=== PATIENT | female | born 1950 | race Caucasian/White ===

== ENCOUNTER → 2022-03-21 09:27 | Outpatient (CLI) | payer MEDICARE, SELFPAY ==
[2022-03-21 10:10] LABS: Add Manual Diff / Slide Review NO; Basophils Absolute Auto 0 /uL (0-100); Basophils Percent Auto 0.4 % (0-2); Eosinophils Absolute Auto 300 /uL (0-450); Eosinophils Percent Auto 3.6 % (2-4); Hematocrit 35.3 % (36-46); Hemoglobin 11.2 g/dL (12.0-16.0); Lymphocytes Absolute Auto 2100 /uL (1100-4500); Lymphocytes Percent Auto 28.7 % (25-40); Mean Corpuscular HGB Conc 31.7 % (30-36); Mean Corpuscular Hemoglobin 26.8 PG (26-34); Mean Corpuscular Volume 84.6 fL (80-100); Monocytes Absolute Auto 600 /uL (0-900); Monocytes Percent Auto 8.9 % (3-14); Neutrophils Absolute Auto 4200 /uL (1500-7000); Neutrophils Percent Auto 58.4 % (50-75); Platelet Count 346 X10^3/uL (150-400); Red Blood Cell Count 4.17 X10^6/uL (4.0-5.2); Red Cell Distribution Width 16.7 % (11.6-14.8); White Blood Cell Count 7.2 X10^3/uL (4.5-11.0)
[2022-03-21 10:29] LABS: Alanine Aminotransferase 21 IU/L (<35); Albumin 4.5 g/dL (3.5-5.0); Albumin Globulin Ratio 1.6 (1.0-2.8); Alkaline Phosphatase 94 U/L (38-126); Aspartate Aminotransferase 23 IU/L (14-36); BUN Creatinine Ratio 18.4 (6-22); Bilirubin Total 0.6 mg/dL (0.2-1.3); Blood Urea Nitrogen 16 mg/dL (7-17); Calcium 9.8 mg/dL (8.4-10.2); Carbon Dioxide 29 mmol/L (22-32); Chloride 100 mmol/L (98-107); Cholesterol 142 mg/dL (140-199); Estimated Glomerular Filt Rate > 60 mL/min (>60); Globulin 2.8 g/dL (1.7-4.1); Glucose 112 mg/dL (80-110); HDL Cholesterol 46 mg/dL (40-60); HEMOLYSIS < 15 (0-50); LDL Cholesterol Calculated 54 mg/dL (<100); Potassium 4.7 mmol/L (3.4-5.1); Sodium 140 mmol/L (137-145); Total Protein 7.3 g/dL (6.3-8.2); Triglycerides 208 mg/dL (35-150)
[2022-03-21 10:38] LABS: Creatinine Urine Random 254.6 mg/dL
[2022-03-21 10:42] LABS: Microalbumi Creatinin Ratio Ur 7.4 ug/mg CR (<30); Microalbumin Urine Random 1.9 mg/dL (0-1.6)
[2022-03-21 11:21] LABS: Hemoglobin A1C% w Est Avg Glu 5.6 % (4.0-6.0)
== END ==
PROVIDERS: PCP Family Medicine; Referring Provider Family Medicine; Visit Provider Family Medicine
DX: E11.9 Type 2 diabetes mellitus without complications (principal); G62.9 Polyneuropathy, unspecified; I10 Essential (primary) hypertension; K50.90 Crohn's disease, unspecified, without complications; L40.50 Arthropathic psoriasis, unspecified; Z79.4 Long term (current) use of insulin
CPT/HCPCS: 36415; 80053; 80061; 82043; 82570; 83036; 84443; 85025

== ENCOUNTER → 2022-07-11 13:03 | Outpatient (CLI) | payer MEDICARE, SELFPAY | PROVIDERS: PCP Family Medicine; Visit Provider Urology | DX: N32.81 Overactive bladder (principal); N39.498 Other specified urinary incontinence; G63 Polyneuropathy in diseases classified elsewhere; Z98.890 Other specified postprocedural states; Z87.440 Personal history of urinary (tract) infections | CPT/HCPCS: 51798; 81002; 87077; 87086; 87186; 99214 ==

== ENCOUNTER 2022-07-21 08:02 | Day surgery (SDC) | payer MEDICARE, SELFPAY ==
--- NOTE | 2022-07-21 | PATH_ITS ---
[facility] Accession Number: [id number] No. of containers..04 Tissue . 01 Material submitted: . PART A: gastrointestinal site - GASTRIC PART B: duodenum - DUODENUM PART C: pylorus - PYLORUS PART D: esophagus - ESOPHAGUS . 01 Diagnosis: A. Gastric, Biopsy: Gastric mucosa with minimal chronic nonspecific inflammation. No Helicobacter pylori organisms identified on H/E slide. No intestinal metaplasia, dysplasia, or malignancy identified. . B. Duodenum, Biopsy: Duodenal mucosa with no diagnostic abnormality. Negative for active inflammation, features of sprue, dysplasia, or malignancy. . C. Pylorus, Biopsy: Gastric mucosa with focal erosion. No Helicobacter pylori organisms identified on immunohistochemical evaluation. No intestinal metaplasia, dysplasia, or malignancy identified. . D. Esophagus, Biopsy: Esophageal squamous mucosa with mild chronic inflammation. No fungal organisms identified on special stain (AB/PAS), with control staining appropriately. Small focus of unremarkable glandular mucosa. No goblet cell metaplasia, dysplasia or malignancy. See comment. [facility] 07/28/2022 1214 Local . 01 Comment: Part D: While nonspecific, the histologic features may represent reflux alterations. Clinical correlation is recommended. . 01 Electronically signed: . Augustina Gaspar MD, Pathologist NPI- [id number] . 01 Gross description: . Part A: GASTRIC: Received in formalin are 2 fragment(s) of mahan, soft tissue measuring 0.2 x 0.2 x 0.2 cm to 0.1 x 0.1 x 0.1 cm submitted entirely in 1 cassette(s) Part B: DUODENUM: Received in formalin are 2 fragment(s) of mahan, soft tissue measuring 0.2 x 0.1 x 0.1 cm to 0.1 x 0.1 x 0.1 cm submitted entirely in 1 cassette(s) Part C: PYLORUS: Received in formalin are 2 fragment(s) of mahan, soft tissue measuring 0.2 x 0.2 x 0.2 cm to 0.1 x 0.1 x 0.1 cm submitted entirely in 1 cassette(s) Part D: ESOPHAGUS: Received in formalin is 1 fragment(s) of mahan, soft tissue measuring 0.1 x 0.1 x 0.1 cm submitted entirely in 1 cassette(s) /[facility] 07/24/2022 1628 Local . 01 Microscopic: . C. An immunohistochemical stain was performed to evaluate for Helicobacter organisms and is negative. The control stain showed appropriate reactivity. . * This test was developed and its performance characteristics determined by [employer]. It has not been cleared or approved by the U.S. Food and Drug Administration. The FDA has determined that such clearance or approval is not necessary. This test is used for clinical purposes. It should not be regarded as investigational or for research. . 01 Pathologist provided ICD-10: K29.30, K29.70, K21.9, K25.9 . 01 CPT . 247755, 760239, 301772, 329342, C30323, 557877 Specimen Comment: A courtesy copy of this report has been sent to [facility] Pathology Performed at: 01 [facility] [address] [place] [address], [place], [place] [id number] MD Ion Higgins MD Phone: [phone]
[2022-07-21 08:13] VITALS: BP 147/82; PULSE 92; RESP 21; TEMP 35.5; O2SAT 96; BMI 31.0
[2022-07-21] MEDS: LACTATED RINGERS 1,000 ML 42 ML IV (08:38)
--- NOTE | 2022-07-21 09:16 | P.HP_ITS ---
History of Present Illness History of Present Illness Date Patient Seen: 07/21/22 Time Patient Seen: 09:16 Chief complaint: SDC Narrative: 71-year-old female presents today for a screening colonoscopy. Her last colonoscopy was 3 years ago and was done in [place]. She believes she did have some polyps and was recommended to have a 3 year follow-up. She was diagnosed with Crohn's disease 15-20 years ago. She is not had symptoms from her Crohn's disease lately her grandmother did have colon cancer. She is on a medication for psoriatic arthritis which helps with her Crohn's as well. When she presented with Crohn's disease back then she was having rectal bleeding and abdominal pain. The diagnosis was made by a turbine technician, Dr. Saida Rodriguez, a doctor (before she moved out to the [facility]) at hospital that was not the main Hospital but at [facility] in [place]. Her most recent turbine technician who has been following her in [place] before she moved back out here was named Jordyn Rutherford and she was with a [facility] there. She always used to get an EGD at the same time as her colonoscopy with Dr. Rutherford because she has had heartburn for years even though she takes medication. On occasion she has breakthrough heartburn and though she takes famotidine every day when she has a breakthrough she adds the Prilosec on and is supposed to take it daily but for less than a month. She also has a nausea with her symptoms and often this is problematic for her. Right now she is not on any medication but in the past she has taken Zofran as needed and that has helped a lot. [facility] Medical History (Updated 07/11/22 @ 13:50 by Blaine Carter MD) Benign essential HTN Crohn disease History of frequent urinary tract infections History of liver disease History of skin cancer Hx of hyperlipidemia Injury of back due to fall OAB (overactive bladder) Peripheral neuropathy Psoriatic arthritis Thyroid nodule Type 2 diabetes mellitus with insulin therapy Urinary incontinence Surgical History (Updated 07/11/22 @ 13:49 by Blaine Carter MD) History of back surgery History of knee replacement Family History Father Rheumatoid arthritis Cancer Mother Parkinsons disease Grandmother Cancer Brother Kidney stones Diabetes mellitus Social History marital status: number of children: 2 household members: spouse occupational status: employed Smoking Status: Never smoker alcohol intake: never substance use type: does not use caffeine: Yes Type(s) of exercise: none Meds Home Medications and Allergies Home Medications Medication Instructions Recorded Confirmed Type duloxetine 60 mg capsule,delayed 60 mg PO DAILY #90 caps 03/21/22 07/21/22 Rx release (Cymbalta) famotidine 20 mg tablet (Pepcid) 20 mg PO BID 03/21/22 07/21/22 History hyoscyamine sulfate 0.125 mg tablet 0.125 mg PO Q4H PRN rectal pain 03/21/22 07/21/22 History insulin glargine 100 unit/mL (3 25 unit SUBCUT BID 03/21/22 07/21/22 History mL) subcutaneous pen (Lantus Solostar U-100 Insulin) insulin lispro 100 unit/mL 6 - 10 unit SUBCUT TID 03/21/22 07/21/22 History subcutaneous pen losartan 25 mg tablet 25 mg PO DAILY #90 tabs 03/21/22 07/21/22 Rx rosuvastatin 10 mg tablet 10 mg PO DAILY 03/21/22 07/21/22 History gabapentin 600 mg tablet See Rx Instructions .Route 03/23/22 07/21/22 Rx .COMPLEX #90 tabs sulfasalazine 500 mg tablet See Rx Instructions .Route 03/23/22 07/21/22 Rx .COMPLEX #120 tabs cyclobenzaprine 10 mg tablet 10 mg PO BEDTIME #90 tabs 03/27/22 07/21/22 Rx flash glucose sensor (FreeStyle #6 ea 04/04/22 Rx Davi 14 Day Sensor kit) sodium,potassium,mag sulfates 17.5 See Rx Instructions PO .COMPLEX 05/15/22 07/21/22 Rx gram-3.13 gram-1.6 gram oral soln #354 mL (Suprep Bowel Prep Kit) cholecalciferol (vitamin D3) 25 25 mcg PO DAILY 07/10/22 07/21/22 History mcg (1,000 unit) capsule folic acid 1 mg tablet 1 mg PO DAILY 07/10/22 07/21/22 History magnesium oxide 500 mg tablet 500 mg PO BID 07/10/22 07/21/22 History metformin 1,000 mg PO BID 07/10/22 07/21/22 History valacyclovir 500 mg tablet 500 mg PO BID 07/10/22 07/21/22 History famotidine 20 mg tablet (Pepcid) 20 mg PO BID 07/11/22 07/21/22 History risankizumab-rzaa [Skyrizi] SUBCUT [id number] 07/11/22 07/11/22 History solifenacin 10 mg tablet (Vesicare) 10 mg PO DAILY #90 tabs 07/14/22 07/21/22 Rx Allergies Allergy/AdvReac Type Severity Reaction Status Date / Time adhesive tape Allergy Unknown Verified 07/21/22 08:25 codeine Allergy Unknown Verified 07/21/22 08:25 mesalamine [From Asacol] AdvReac Unknown Verified 07/21/22 08:25 Exam Vital Signs (past 8 hours): - 07/21/22 08:13 Temperature 96 F L Pulse Rate 92 H Respiratory Rate 21 Blood Pressure 147/82 H Pulse Oximetry 96 Oxygen Delivery Method Room Air Oxygen Delivery Method Room Air Const General: cooperative, healthy appearing and comfortable Nutritional Appearance: obese Orientation: alert, awake and oriented x3 HENMT Head: normal to inspection Resp Effort & Inspection: normal respiratory effort and able to speak in complete sentences GI Palpation: soft and No tender Assessment & Plan Assessment & Plan narrative: Presents today for screening colonoscopy I discussed the risks benefits and alternatives including but not limited to perforation of the colon and an incomplete exam she fully understands these risks and would like to proceed. Also discussed the risks of EGD including perforation. I will write her prescription for some as needed Zofran and make a referral to Gastroenterology because she will need to be followed by a turbine technician here. I will ask my office staff to requisition the records that the turbine technician need. I discussed [facility] with her and she does not feel that she needs to be seen urgently and would like to be seen in [place].
[2022-07-21 11:03] VITALS: BP 112/52; PULSE 67; RESP 17; TEMP 36.3; O2SAT 89
[2022-07-21 11:08] VITALS: BP 128/81; PULSE 70; RESP 18; O2SAT 98
[2022-07-21 11:12] VITALS: BP 120/62; PULSE 67; RESP 15; O2SAT 96
--- NOTE | 2022-07-21 11:12 | SUR.PHASEI ---
Irrigation and small amounts of BM in bed. patient cleanedd with wipes, new linens applied.
[2022-07-21 11:17] VITALS: BP 115/61; PULSE 62; RESP 12; TEMP 36.4; O2SAT 98
--- NOTE | 2022-07-21 12:55 | P.OP.EGD&C_ITS ---
Operative Date/Time/Diagnoses Date of procedure: 07/21/22 Pre-op diagnosis: History of Crohn's, history of GERD, history of polyps Post-op diagnosis: other (Same as above but, also poor prep) Procedure & Clinicians Study performed: 1. EGD and biopsy 2. Colonoscopy Same procedure as scheduled: Yes Indications: See preop diagnosis Surgeon: Veronika Shaw Procedure Notes Procedure in detail: Patient was taken to the endoscopy suite and placed supine with her head up right. Bite block was placed. A time-out was performed. Conscious sedation with the help of anesthesia provider was induced and maintained throughout the case. The EGD scope was placed into the mouth and easily advanced into the esophagus. It was then advanced into stomach past pylorus and into the duodenum. Photographs were obtained. The duodenum was biopsied. The pylorus was biopsied and finally the gastric mucosa was biopsied. There were a few gastric polyps and erythema in the gastric and pyloric mucosa. The scope was retracted into the esophagus and some distal esophageal biopsies were obtained but the GE junction appeared normal and no Vega's esophagus was appreciated. Next the patient was positioned left lateral decubitus for colonoscopy. A digital rectal exam was performed. There were no masses or strictures. The colonoscope was introduced into the anal canal and advanced through to the cecum. The prep was not very good multiple photographs were obtained. Efforts were made at irrigation in order to obtain an adequate exam, but the amount of material and thickness of it continually was clogging the suction port, causing a delay and difficulty in the procedure. I was able to intubate the terminal ileum however with a cough the scope was pushed out and I was not able to re- enter it. No photograph or biopsy was obtained of the terminal ileum. Finally the scope was withdrawn for the course of 40 minutes. The majority of the time was spent in suctioned and irrigating and attempting to reintubate the terminal ileum. No obvious polyps were seen there was certainly no large lesions. I however would not call this a Noel adequate exam and would recommend a follow- up in 1 year. At the time of follow-up I would recommend a 2 day prep. Findings: gastritis and polyp Specimen(s): other (1. Gastric 2. Duodenum 3. Pylorus 4. Distal esophagus) Complications: none Post-procedure Recommendations: Colonscopy in 1 year Plan for aftercare: Will make Gastroenterology referral for Crohn's disease. Disposition: PACU
== END 2022-07-21 11:29 | disposition home or self-care (01) ==
PROVIDERS: PCP Family Medicine; Referring Provider Surgery; Visit Provider Surgery
PROC: 0DJD8ZZ Inspection of Lower Intestinal Tract, Via Natural or Artificial Opening Endoscopic (ICD-10-PCS; CPT 45378; principal; 2022-07-21 08:45)
PROC: 0DJ08ZZ Inspection of Upper Intestinal Tract, Via Natural or Artificial Opening Endoscopic (ICD-10-PCS; CPT 43235; 2022-07-21 08:45)
DX: Z12.11 Encounter for screening for malignant neoplasm of colon (principal); Z86.010 Personal history of colon polyps; E11.9 Type 2 diabetes mellitus without complications; Z79.4 Long term (current) use of insulin; I10 Essential (primary) hypertension; K29.70 Gastritis, unspecified, without bleeding; K31.7 Polyp of stomach and duodenum; K29.50 Unspecified chronic gastritis without bleeding
CPT/HCPCS: 43239; G0105; J2704

== ENCOUNTER → 2022-09-28 14:14 | Outpatient (CLI) | payer MEDICARE, SELFPAY ==
[2022-09-29 09:17] LABS: x Labcorp Estim. Avg Glu (eAG) 105 mg/dL (.); x Labcorp Hemoglobin A1c 5.3 % (4.8-5.6)
== END ==
PROVIDERS: PCP Family Medicine; Referring Provider Family Medicine; Visit Provider Family Medicine
DX: E11.9 Type 2 diabetes mellitus without complications (principal)
CPT/HCPCS: 36415; 83036

== ENCOUNTER → 2022-10-09 14:15 | Outpatient (CLI) | payer MEDICARE, SELFPAY ==
--- NOTE | 2022-10-09 14:18 | DI.MG.S_ITS ---
BILATERAL DIGITAL SCREENING MAMMOGRAM 3D/2D WITH CAD WITH AUGMENTATION: 10/09/2022 CLINICAL: Routine screening. No prior exams were available for comparison. Both breasts are heterogeneously dense, which may obscure small masses (category c / 51-75% glandular tissue). Current study was also evaluated with a Computer Aided Detection (CAD) system. Bilateral breast implants are intact. No significant masses, calcifications, or other findings are seen in either breast. IMPRESSION: NEGATIVE There is no mammographic evidence of malignancy. A 1 year screening mammogram is recommended. Based on the Tyrer Cuzick model (a risk assessment model) the patient's lifetime risk is 9.0% and her 10 year risk is 6.2%. According to the ACR, ACS, and NCCN guidelines, an annual breast MRI exam along with mammogram is recommended if the patient's lifetime risk is 20% or greater. This exam was interpreted at Station ID: [id number]. NOTE: For mammograms, a report in lay terms will be sent to the patient. Approximately 15% of breast malignancies will not be visualized mammographically. In the management of a palpable breast mass, a negative mammogram must not discourage biopsy of a clinically suspicious lesion. Electronically Signed By: Bobbi sanchez/amador:10/09/2022 15:01:24 letter sent: Normal Exam ACR BI-RADS Category 1: Negative [id number]
== END ==
PROVIDERS: PCP Family Medicine; Referring Provider Family Medicine; Visit Provider Family Medicine
DX: Z12.31 Encounter for screening mammogram for malignant neoplasm of breast (principal)
CPT/HCPCS: 77063; 77067

== ENCOUNTER → 2022-11-24 13:43 | Outpatient (CLI) | payer MEDICARE, SELFPAY | PROVIDERS: PCP Family Medicine; Referring Provider Podiatrist; Visit Provider Podiatrist | DX: Z01.818 Encounter for other preprocedural examination (principal) | CPT/HCPCS: 93005; 93010 ==

== ENCOUNTER 2022-12-26 03:42 | Emergency (ER) | payer MEDICARE, SELFPAY ==
[2022-12-26] VITALS (8 sets, daily range): BP systolic 134–160; BP diastolic 60–73; PULSE 20–96; RESP 17–20; TEMP 36.4; O2SAT 93–97; BMI 30.2
--- NOTE | 2022-12-26 03:49 | ED_ITS ---
HPI - General Adult General Chief complaint: Upper Respiratory Symptoms Stated complaint: coughing Time Seen by Provider: 12/26/22 03:45 History of Present Illness HPI narrative: 72-year-old will with a history of psoriatic arthritis, Crohn's disease on methotrexate and scab dizzy, hypertension, diabetes, peripheral neuropathy and depression with complaints of persistent cough. Her symptoms began on December 16 with simple upper respiratory symptoms. Her had similar complaints and his symptoms resolved without difficulty. Her however have progressed with cough that is now becoming more and more productive and so intrusive that she has not been able to sleep for the last 3 nights. She complains of chest pain secondary to the cough only, no palpitations she notes that she is feeling short of breath. She has not had any abdominal pain diarrhea, urinary symptoms. Does note intermittent headaches Related Data Home Medications Medication Instructions Recorded Confirmed hyoscyamine sulfate 0.125 mg tablet 0.125 mg PO Q4H PRN rectal pain 03/21/22 09/26/22 insulin glargine 100 unit/mL (3 25 unit SUBCUT BID 03/21/22 09/26/22 mL) subcutaneous pen (Lantus Solostar U-100 Insulin) insulin lispro 100 unit/mL 6 - 10 unit SUBCUT TID 03/21/22 09/26/22 subcutaneous pen rosuvastatin 10 mg tablet 10 mg PO DAILY 03/21/22 09/26/22 folic acid 1 mg tablet 1 mg PO DAILY 07/10/22 09/26/22 magnesium oxide 500 mg tablet 500 mg PO BID 07/10/22 09/26/22 metformin 1,000 mg PO BID 07/10/22 09/26/22 valacyclovir 500 mg tablet 500 mg PO BID 07/10/22 09/26/22 famotidine 20 mg tablet (Pepcid) 20 mg PO BID 07/11/22 09/26/22 methotrexate sodium 25 mg/mL 25 mg IM QWEEK 09/26/22 09/26/22 injection solution risankizumab-rzaa 150 mg/mL 150 mg SUBCUT [id number] 09/26/22 09/26/22 subcutaneous pen injector (Skyrizi) Previous Rx's Medication Instructions Recorded duloxetine 60 mg capsule,delayed 60 mg PO DAILY #90 caps 03/21/22 release (Cymbalta) losartan 25 mg tablet 25 mg PO DAILY #90 tabs 03/21/22 gabapentin 600 mg tablet See Rx Instructions .Route 03/23/22 .COMPLEX #90 tabs cyclobenzaprine 10 mg tablet 10 mg PO BEDTIME #90 tabs 03/27/22 flash glucose sensor (FreeStyle #6 ea 04/04/22 Davi 14 Day Sensor kit) sodium,potassium,mag sulfates 17.5 See Rx Instructions PO .COMPLEX 05/15/22 gram-3.13 gram-1.6 gram oral soln #354 mL (Suprep Bowel Prep Kit) solifenacin 10 mg tablet (Vesicare) 10 mg PO DAILY #90 tabs 07/14/22 meclizine 25 mg tablet (Dramamine 25 mg PO TID PRN vertigo #30 tabs 09/26/22 (meclizine)) ondansetron HCl 4 mg tablet 4 mg PO Q6-8H PRN nausea and 09/26/22 vomiting #30 tabs nirmatrelvir 300 mg (150 mg See Rx Instructions PO .COMPLEX 12/17/22 x2)-ritonavir 100 mg tablet,dose #30 ea pack (Paxlovid) benzonatate 100 mg capsule 100 mg PO BID-TID PRN cough #14 12/26/22 caps oxycodone-acetaminophen 5 mg-325 1 tab PO Q6H PRN pain or cough #14 12/26/22 mg tablet tabs Allergies Allergy/AdvReac Type Severity Reaction Status Date / Time adhesive tape Allergy Unknown Verified 09/26/22 13:55 codeine Allergy Unknown Verified 09/26/22 13:55 mesalamine [From Asacol] AdvReac Unknown Verified 09/26/22 13:55 Review of Systems Review of Systems Narrative: Pertinent positive and negative findings as per HPI Patient History Medical History History of squamous cell carcinoma History of basal cell cancer Foot pain (~2013) Measles (~1958) History of cold sores (~1964) Chicken pox (~1957) Anemia Vertigo (~2007) Human papilloma virus (~2009) History of urinary incontinence (~2013) Fatty liver (~2004) Hemorrhoid GI bleeding (~2004) Colon polyps Skin cancer History of liver disease History of skin cancer Hx of hyperlipidemia OAB (overactive bladder) Thyroid nodule (~2017) Peripheral neuropathy (~2004) Crohn disease (~2004) Psoriatic arthritis (~2003) Benign essential HTN Type 2 diabetes mellitus with insulin therapy (~2012) Surgical History Anesthesia History of bunionectomy Lumbar stenosis History of tonsillectomy and adenoidectomy (~195) History of knee replacement History of back surgery (~2008) Family History Father Rheumatoid arthritis Cancer Mother Parkinsons disease Skin cancer Grandmother Cancer Diabetes mellitus Brother Kidney stones Diabetes mellitus Skin cancer Grandfather Cancer Grandmother Mental health problem Grandfather Asthma Family/Other History of IBS Social History marital status: number of children: 2 household members: spouse occupational status: employed Smoking Status: Never smoker alcohol intake: never substance use type: does not use caffeine: Yes Type(s) of exercise: none Smoking Status: Never smoker alcohol intake frequency: holidays/special occasions only Substance Use Type: does not use Exam Initial Vital Signs Initial Vital Signs: General: Presents with the cough but in no acute distress. Able to give a complete and coherent history, speaking in full sentences Well-nourished well- developed HEENT: Moist mucous membranes, normal sclera with reactive pupils, Neck: No JVD, supple Respiratory: Lungs with minor wheezing upper lung beebe, rhonchi bilaterally in lower lung beebe Cardiac: Regular rate and rhythm no murmurs no bruits Abdomen: Soft, nontender, good bowel tones, no flank pain Skin: Warm and dry, no rashes Neurologic: Grossly neurologically intact with no obvious asymmetries or abnormalities Extremities: No trauma, well perfused Psych: Cooperative, appropriate insight and affect Medical Decision Making MDM Narrative Medical decision making narrative: CC: Upper respiratory infection with worsening cough becoming more productive Complicating co-morbidities: Psoriatic arthritis, Crohn's disease diabetes Data collected from: patient, Medical records reviewed: Primary care notes from September are reviewed, rheumatology notes from November are reviewed Differential considered: Bacterial pneumonia, secondary viral infection, congestive heart failure Exam documented above, pertinent findings include: Coarse rhonchi through bases of the lungs by laterally with scattered wheeze. She is able to speak in full sentences but does have fairly intrusive in dramatic cough. Lab Test results independently reviewed as above. Pertinent findings: CBC shows a white count of 10.5 without left shift chronic stable anemia mild thrombocytosis with platelets of 455 Chemistries are unremarkable with normal renal function Troponin is undetectable ProBNP is not elevated Procalcitonin is not elevated Independently reviewed EKG sinus rhythm at a rate of 83, normal intervals normal axis, no acute ischemic changes Imaging studies independently reviewed: Chest x-ray shows no acute infiltrates but consistent with a bronchiolitis viral pneumonia type picture Treatments: 1 L of fluid, DuoNeb, Tessalon Perle, IV Solu-Medrol, single Percocet Re-evaluations: Patient continues to have fairly dramatic but nonproductive cough. The DuoNeb did not seem to be all that effective. Minimal help with the Tessalon. The Percocet was more helpful in slightly suppressing the cough Discussion: 72-year-old woman with persistent cough with viral pneumonia without evidence of bacterial superinfection, sepsis or indications for antibiotics. There is no indication of congestive heart failure, acute coronary syndrome or pneumothorax. She and her were planning a 2 week trip to [facility] leaving this afternoon and I have recommended that she not try to fly for at least 3 days not only will she be too fatigued but I think it is inappropriate with the degree of cough to be in enclosed public spaces like airplanes. CURB-65 Score for Pneumonia Severity RESULT SUMMARY: 1 points Low risk group: 2.7% 30-day mortality. Consider outpatient treatment. Discharge Plan Departure Patient Disposition: Home Clinical Impression: Other viral pneumonia Cough Qualifiers: Cough type: acute Qualified Code(s): R05.1 - Acute cough Instructions: Atypical Pneumonia Activity Restrictions/Additional Instructions: Thank you for coming in today I believe that you are having persistent cough in light of your recent upper respiratory infection. With a thorough workup done today there is no evidence of bacterial secondary infection, sepsis, congestive heart failure, heart attack or heart attack like syndrome. You did not seem to have any significant change in your cough with bronchodilators (the breathing treatment) At this time, I think conservative management continues to be appropriate. I am going to give you a small prescription for Percocet which has oxycodone and Tylenol in it. This is going to help with the pain from the severe cough as well as suppress the cough. I am also going to give you a prescription for Tessalon Perles, a nonnarcotic options for cough suppression. Prescriptions were electronically transmitted to [facility] in [place] You still need lots of fluids plenty of rest. I would not recommend travel, particularly air travel, until December 29 at the earliest If you find that you are getting worse or develop any new symptoms, please feel free to return to the emergency department for further evaluation. Prescriptions: New oxycodone-acetaminophen 5-325 mg tablet 1 tab PO Q6H PRN (Reason: pain or cough) Qty: 14 0RF benzonatate 100 mg capsule 100 mg PO BID-TID PRN (Reason: cough) Qty: 14 0RF No Action gabapentin 600 mg tablet See Rx Instructions .ROUTE .COMPLEX Qty: 90 11RF Dose Instruction: TAKE 1 TABLET(600 MG) BY MOUTH THREE TIMES DAILY Rx Instructions: TAKE 1 TABLET(600 MG) BY MOUTH THREE TIMES DAILY cyclobenzaprine 10 mg tablet 10 mg PO BEDTIME Qty: 90 3RF (DME) FreeStyle Davi 14 Day Sensor Kit See Rx Instructions .Route Qty: 6 11RF Rx Instructions: As directed sodium,potassium,mag sulfates [Suprep Bowel Prep Kit] 17.5-3.13-1.6 gram recon soln See Rx Instructions PO .COMPLEX Qty: 354 0RF Rx Instructions: Take as directed by Physician Paxlovid 300 mg (150 mg x 2)-100 mg tablets,dose pack See Rx Instructions PO .COMPLEX Qty: 30 0RF Rx Instructions: take TWO 150 mg tablets of nirmatrelvir with ONE 100 mg tablet of ritonavir twice daily for 5 days PO insulin glargine [Lantus Solostar U-100 Insulin] 100 unit/mL (3 mL) insulin pen 25 unit SUBCUT BID rosuvastatin 10 mg tablet 10 mg PO DAILY hyoscyamine sulfate 0.125 mg tablet 0.125 mg PO Q4H PRN (Reason: rectal pain) duloxetine [Cymbalta] 60 mg capsule,delayed release(DR/EC) 60 mg PO DAILY Qty: 90 3RF losartan 25 mg tablet 25 mg PO DAILY Qty: 90 3RF insulin lispro 100 unit/mL insulin pen 6 - 10 unit SUBCUT TID metformin 1,000 mg PO BID methotrexate sodium 25 mg/mL solution 25 mg IM QWEEK Skyrizi 150 mg/mL pen injector 150 mg SUBCUT [id number] Patient Comments: [NO ORIGINAL SIG] ondansetron HCl 4 mg tablet 4 mg PO Q6-8H PRN (Reason: nausea and vomiting) Qty: 30 11RF meclizine [Dramamine (meclizine)] 25 mg tablet 25 mg PO TID PRN (Reason: vertigo) Qty: 30 0RF folic acid 1 mg tablet 1 mg PO DAILY magnesium oxide 500 mg tablet 500 mg PO BID valacyclovir 500 mg tablet 500 mg PO BID famotidine [Pepcid] 20 mg tablet 20 mg PO BID solifenacin [Vesicare] 10 mg tablet 10 mg PO DAILY Qty: 90 3RF Referrals: Jon Simeon DO [Primary Care Provider] - Stand Alone Forms: Patient Portal/API
--- NOTE | 2022-12-26 03:54 | DI.RAD.S_ITS ---
PROCEDURE: XR CHEST 1V INDICATIONS: Cough TECHNIQUE: One view of the chest was acquired. COMPARISON: None. FINDINGS: Surgical changes and devices: ACDF. Lungs and pleura: Lungs are clear. No pleural effusions or pneumothorax. Peribronchial cuffing. Mediastinum: Mediastinal contours appear normal. Heart size is normal. Bones and chest wall: No suspicious bony lesions. Overlying soft tissues appear unremarkable. IMPRESSION: Peribronchial cuffing, typically indicating infectious or inflammatory bronchitis. Dictated by: Frankie Dean M.D. on 12/26/2022 at 8:07 Approved by: Frankie Dean M.D. on 12/26/2022 at 8:11
[2022-12-26] MEDS: BENZONATATE 100 MG CAPSULE PO (04:04)
[2022-12-26] MEDS: ALBUTEROL/IPRATROPIUM 3 ML AMPUL INH (04:10)
[2022-12-26] MEDS: SODIUM CHLORIDE 0.9% 1,000 ML 1000 ML IV (04:27)
[2022-12-26 04:55] LABS: Alanine Aminotransferase 32 IU/L (<35); Albumin 4.3 g/dL (3.5-5.0); Albumin Globulin Ratio 1.3 (1.0-2.8); Alkaline Phosphatase 84 U/L (38-126); Aspartate Aminotransferase 40 IU/L (14-36); BUN Creatinine Ratio 21.3 (6-22); Bilirubin Total 0.5 mg/dL (0.2-1.3); Blood Urea Nitrogen 16 mg/dL (7-17); Carbon Dioxide 28 mmol/L (22-32); Chloride 101 mmol/L (98-107); Estimated Glomerular Filt Rate > 60 mL/min (>60); Globulin 3.3 g/dL (1.7-4.1); Glucose 106 mg/dL (80-110); Magnesium 2.2 mg/dL (1.6-2.3); Potassium 4.5 mmol/L (3.4-5.1); Sodium 138 mmol/L (137-145); Total Protein 7.6 g/dL (6.3-8.2)
[2022-12-26 04:57] LABS: Lactate (Lactic Acid) 1.7 mmol/L (0.7-2.1)
[2022-12-26 05:07] LABS: NT-proBNP (BNP-Adult 18+) 23 pg/mL (<125); Troponin I < 0.012 ng/mL (0.01-0.034)
[2022-12-26 05:11] LABS: Add Manual Diff / Slide Review NO; Basophils Absolute Auto 100 /uL (0-100); Basophils Percent Auto 0.8 % (0-2); Eosinophils Absolute Auto 400 /uL (0-450); Eosinophils Percent Auto 3.6 % (2-4); Hematocrit 34.2 % (36-46); Hemoglobin 11.1 g/dL (12.0-16.0); Lymphocytes Absolute Auto 3600 /uL (1100-4500); Mean Corpuscular HGB Conc 32.5 % (30-36); Mean Corpuscular Hemoglobin 27.7 PG (26-34); Mean Corpuscular Volume 85.1 fL (80-100); Monocytes Absolute Auto 1300 /uL (0-900); Monocytes Percent Auto 12.7 % (3-14); Neutrophils Absolute Auto 5100 /uL (1500-7000); Neutrophils Percent Auto 48.9 % (50-75); Platelet Count 455 X10^3/uL (150-400); Procalcitonin 0.06 ng/mL (<0.5); Red Blood Cell Count 4.02 X10^6/uL (4.0-5.2); Red Cell Distribution Width 17.5 % (11.6-14.8); White Blood Cell Count 10.5 X10^3/uL (4.5-11.0)
[2022-12-26 05:26] LABS: HEMOLYSIS 67 (0-50)
[2022-12-26] MEDS: methylPREDNISolone 125 MG/2 ML VIAL IV (05:48)
[2022-12-26] MEDS: OXYCODONE/ACETAMINOPHEN 5/325 TABLET 1 TAB PO (05:48)
[2022-12-26 05:59] LABS: D Dimer 1053 ng/ml (<500)
[2022-12-26 07:02] LABS: Appearance Urine UA CLEAR; Bilirubin Urine UA NEGATIVE (NEGATIVE); Color Urine UA YELLOW; Glucose Urine UA NEGATIVE (Negative); Ketones Urine UA NEGATIVE (NEGATIVE); Leukocyte Esterase Urine UA 1+ (NEGATIVE); Nitrite Urine UA POSITIVE (Negative); Occult Blood Urine UA NEGATIVE (Negative); Protein Urine UA NEGATIVE (Negative); Specific Gravity Urine UA <=1.005 (1.000-1.035); Urobilinogen Urine UA 0.2 E.U./dL (0.2)
[2022-12-26 07:06] LABS: pH Urine UA 5.5 (4.5-8.0)
[2022-12-26 07:12] LABS: Bacteria Urine Many (>30); Culture Indicated Urine Specimen Cultured; RBC Urine None Seen (0-5/HPF); Squamous Epithelial Cell Urine 1-5 /HPF (0-5/HPF); WBC Urine 1-5/HPF (0-5/HPF)
== END 2022-12-26 06:09 | disposition home or self-care (01) ==
PROVIDERS: Emergency Provider Emergency Medicine; PCP Family Medicine
DX: J18.9 Pneumonia, unspecified organism (principal); R05.1 Acute cough; Z79.899 Other long term (current) drug therapy
CPT/HCPCS: 36415; 71045; 80053; 81001; 83605; 83735; 83880; 84145; 84484; 85025; 85379; 87040; 87070; 87077; 87086; 87186; 87205; 93005; 93010; 94640; 96361; 96374; 99284; J2930

== ENCOUNTER 2022-12-30 19:23 | Inpatient (IN) | payer MEDICARE, SELFPAY ==
[2022-12-30] VITALS (26 sets, daily range): BP systolic 121–167; BP diastolic 54–76; PULSE 92–119; RESP 19–49; TEMP 37.3–39.8; O2SAT 85–98; BMI 35.3
--- NOTE | 2022-12-30 19:28 | DI.RAD.S_ITS ---
PROCEDURE: XR CHEST 1V INDICATIONS: SOB, fever, hypoxia; + covid early in month. TECHNIQUE: One view of the chest was acquired. COMPARISON: [facility], CR, XR CHEST 1V, 12/26/2022, 3:53. FINDINGS: Surgical changes and devices: Cervical fixation plate. Lungs and pleura: Mild increased pulmonary vascularity. Mediastinum: Mediastinal contours appear normal. Heart size is enlarged. Bones and chest wall: No suspicious bony lesions. Overlying soft tissues appear unremarkable. IMPRESSION: Mild increased pulmonary vascularity suggestive of edema. Dictated by: Alison Blanchard M.D. on 12/30/2022 at 19:46 Approved by: Alison Blanchard M.D. on 12/30/2022 at 19:47
--- NOTE | 2022-12-30 19:39 | ED_ITS ---
HPI - Sepsis General Chief Complaint: Shortness of Breath/Dyspnea Mode of arrival: EMS Source: EMS Limitations: altered mental status Evaluation Sepsis Screen: Possible Severe Sepsis Risk Sepsis Infection Criteria Present: Suspected New Infection Narrative: 72-year-old female with history of psoriatic arthritis, Crohn's disease on methotrexate, hypertension, diabetes, peripheral neuropathy and depression was seen here on 12/26/2022 for cough. Patient was noted to have a recent COVID infection tested negative reportedly earlier in the week. Patient has had fevers, cough, shortness of breath, reportedly became confused fairly abruptly earlier today. She is found to be hypoxic with EMS is 86% room air here. Patient can tell me her name, she can tell me where she is. Denies pain currently. No complaint of headache, no chest pain but shortness of breath has a barky harsh cough, no reported nausea or vomiting, no reports of diarrhea or constipation, no urinary symptoms currently. Patient was discharged home with Tessalon Perles and Percocet 4 days ago. Allergies to adhesive tape, codeine and mesalamine. No tobacco, occasional alcohol, no illicit. Primary care is Dr. Webb. Patient lives with her who called for EMS today. Review of Systems Review of Systems ROS Unobtainable: Unobtainable due to mental status/LOC Patient History Medical History History of squamous cell carcinoma History of basal cell cancer Foot pain (~2013) Measles (~1958) History of cold sores (~1964) Chicken pox (~1957) Anemia Vertigo (~2007) Human papilloma virus (~2009) History of urinary incontinence (~2013) Fatty liver (~2004) Hemorrhoid GI bleeding (~2004) Colon polyps Skin cancer History of liver disease History of skin cancer Hx of hyperlipidemia OAB (overactive bladder) Thyroid nodule (~2017) Peripheral neuropathy (~2004) Crohn disease (~2004) Psoriatic arthritis (~2003) Benign essential HTN Type 2 diabetes mellitus with insulin therapy (~2012) Surgical History Anesthesia History of bunionectomy Lumbar stenosis History of tonsillectomy and adenoidectomy (~1954) History of knee replacement History of back surgery (~2008) Family History Father Rheumatoid arthritis Cancer Mother Parkinsons disease Skin cancer Grandmother Cancer Diabetes mellitus Brother Kidney stones Diabetes mellitus Skin cancer Grandfather Cancer Grandmother Mental health problem Grandfather Asthma Family/Other History of IBS Social History marital status: number of children: 2 household members: spouse occupational status: employed Smoking Status: Never smoker alcohol intake: current substance use type: does not use caffeine: Yes Type(s) of exercise: none Smoking Status: Never smoker alcohol intake frequency: holidays/special occasions only Substance Use Type: does not use Exam Narrative Exam Narrative: GEN: well nourished, female, alert and oriented to self and location, answer some questions appropriately, patient appears to be in moderate to severe distress. Patient feels warm to the touch. HEENT: Atraumatic, pupils are equal round reactive to light, extraocular movements are intact, nares are clear, there is no conjunctival pallor. Throat is clear without any exudates, erythema, tonsillar enlargement or uvular deviation, no nuchal rigidity or meningeal signs. HEART: Tachycardic but tegular rate and rhythm without murmur, clicks, rubs. Pulses are equal in upper and lower extremities, no mottling of extremities. LUNGS:Lungs patient decreased in the right base, has crackles and rales with rhonchi bilaterally, no wheezes appreciated, chest moves symmetrically. Positive for tachypnea. No accessory muscle use. No tripoding. Patient has a harsh cough, no stridor no muffled voice ABD:bowel sounds normal, soft, non-tender, no guarding, rebound, rigidity, no masses noted, no hepatosplenomegaly :No CVA tenderness MSCL: Non-tender, no muscle atrophy, muscles strength 5/5 upper and lower extremities, full range of motion upper and lower extremities. NEURO:CN 2-12 intact, sensation normal. No facial droop. No lateralizing weakness. SKIN: Rash, erythema or other skin changes Initial Vital Signs Initial Vital Signs: Vital Signs Temperature 103.6 F H 12/30/22 19:21 Pulse Rate 111 H 12/30/22 19:21 Respiratory Rate 34 H 12/30/22 19:21 Blood Pressure 167/76 H 10/21/23 19:21 Pulse Oximetry 85 L 12/30/22 19:21 Oxygen Delivery Method Room Air 12/30/22 19:21 Scores GCS Raffy coma scale eye opening: Spontaneous Raffy coma scale verbal response: Confused [place] coma scale motor response: Obey commands Raffy coma scale total score: 14 Course Orders Ordered: ED Orders 12/30/22 19:28 XR chest 1V Stat Arterial Blood Gas Stat EKG-12 Lead Stat 12/30/22 19:40 Respiratory Panel (Film Array) Stat 12/30/22 19:50 Complete Blood Count AUTO DIFF Stat Comprehensive Metabolic Panel Stat D Dimer Stat Lactate (Lactic Acid) Stat NT-proBNP (BNP-Adult 18+) Stat PTT Partial Thromboplastin Kerwin Stat Procalcitonin Stat Prothrombin Time INR Stat Troponin & CK Cardiac Panel Stat 12/30/22 20:12 Urinalysis and Microscopic Stat Urine Culture Stat 12/30/22 20:22 Blood Culture Stat 12/30/22 20:52 CT angio chest PE protocol Stat CT head/brain wo con Stat 12/30/22 21:47 Urine Drug Screen, Rapid Stat Acetaminophen (Acetaminophen 325 Mg Tablet) 650 mg PO Q6H PRN PRN Reason: Pain, Mild (1-3) Hydrocodone Bitart/Acetaminophen (Hydrocodone/Acet 5/325 Tablet) 1 tab PO Q4H PRN PRN Reason: Pain, Moderate (4-6) Albuterol (Albuterol 2.5 Mg/3 Ml Neb (Adult)) 2.5 mg INH RTTID PRN PRN Reason: Bronchospasm Last Admin: 12/31/22 03:00 Dose: 2.5 mg Documented By: ALYSIA Albuterol/Ipratropium (Albuterol/Ipratropium 3 Ml Ampul) 3 ml INH [id number] PATO Atorvastatin Calcium (Atorvastatin 20 Mg Tablet) 20 mg PO BEDTIME PATO Benzonatate (Benzonatate 100 Mg Capsule) 100 mg PO TID PRN PRN Reason: Cough Calcium Carbonate (Calcium Carbonate 500 Mg Tab) 1,000 mg PO Q4HR PRN PRN Reason: Dyspepsia Cyclobenzaprine HCl (Cyclobenzaprine 10 Mg Tablet) 10 mg PO BEDTIME [facility] Dexamethasone (Dexamethasone 10 Mg/Ml Vial) 6 mg IV DAILY [facility] Doxycycline Hyclate (Doxycycline Hyclate 100 Mg Tablet) 100 mg PO BID PATO Duloxetine HCl (Duloxetine 30 Mg Capsule) 60 mg PO DAILY [facility] Enoxaparin Sodium (Enoxaparin 40 Mg/0.4 Ml Syringe) 40 mg SUBCUT DAILY [facility] Famotidine (Famotidine 20 Mg Tablet) 20 mg PO BID [facility] Folic Acid (Folic Acid 1 Mg Tablet) 1 mg PO DAILY [facility] Gabapentin (Gabapentin 600 Mg Tablet) 600 mg PO 1200 [facility] Gabapentin (Gabapentin 600 Mg Tablet) 1,800 mg PO 2359 [facility] Sodium Chloride (Normal Saline 0.9%) 1,000 mls @ 100 mls/hr IV CONT [facility] Last Admin: 12/31/22 00:51 Dose: 100 mls/hr Documented By: Ceftriaxone Sodium 1,000 mg/ (Sodium Chloride) 100 mls @ 200 mls/hr IV Q24H [facility] Dextrose (D10w) 100 mls @ 1,200 mls/hr IV PRN PRN PRN Reason: Hypoglycemia Ibuprofen (Ibuprofen 600 Mg Tablet) 600 mg PO Q6H [facility] Last Admin: 12/31/22 01:03 Dose: Not Given Documented By: Insulin Glargine (Insulin Glargine 100 Unit/Ml 3ml Pen) 18 unit SUBCUT BID [facility] Insulin Human Lispro (Insulin Lispro 100 Unit/Ml 3ml Vial) 0 unit SUBCUT [facility]; Protocol Ketorolac Tromethamine (Ketorolac 30 Mg/Ml Vial) 30 mg IV Q6H PRN PRN Reason: Pain, Moderate (4-6) Stop: 01/05/23 00:49 Morphine Sulfate (Morphine 2 Mg/Ml Inj) 2 mg IV Q4HR PRN PRN Reason: Pain, Moderate (4-6) Last Admin: 12/31/22 01:23 Dose: 2 mg Documented By: Naloxone HCl (Naloxone 0.4 Mg/Ml Vial) 0.2 mg IV Q2MIN PRN PRN Reason: Opiate Reversal Non-Formulary Medication (Magnesium Oxide) 500 mg PO BID [facility] Ondansetron HCl (Ondansetron 4 Mg/2 Ml Inj) 4 mg IV Q8HR PRN PRN Reason: Nausea And Vomiting Oxybutynin Chloride (Oxybutynin 5 Mg Er Tab) 10 mg PO DAILY [facility] Pantoprazole Sodium (Pantoprazole Dr 20 Mg Tablet) 20 mg PO 0600 [facility] Promethazine HCl (Promethazine 12.5 Mg Supp) 12.5 mg AR Q6HR PRN PRN Reason: Nausea And Vomiting Sennosides (Sennosides 8.6 Mg Tablet) 17.2 mg PO BEDTIME PATO Valacyclovir HCl (Valacyclovir 500 Mg Tablet) 500 mg PO BID PATO Discontinued Medications Acetaminophen (Acetaminophen 325 Mg Tablet) 975 mg PO NOW ONE Stop: 12/30/22 19:40 Acetaminophen (Acetaminophen 650 Mg Supp) 650 mg AR NOW ONE Stop: 12/30/22 19:42 Last Admin: 12/30/22 20:07 Dose: 650 mg Documented By: NEHA Albuterol/Ipratropium (Albuterol/Ipratropium 3 Ml Ampul) 3 ml INH NOW ONE Stop: 12/30/22 19:31 Last Admin: 12/30/22 19:53 Dose: 3 ml Documented By: ALYSIA Gabapentin (Gabapentin 600 Mg Tablet) 0 mg PO .COMPLEX PATO Ceftriaxone Sodium 2,000 mg/ (Sodium Chloride) 100 mls @ 200 mls/hr IV NOW ONE Stop: 12/30/22 19:29 Last Infusion: 12/30/22 21:06 Dose: Infused Documented By: Admin: 12/30/22 20:26 Dose: 200 mls/hr Documented By: NEHA Sodium Chloride (Normal Saline 0.9%) 1,000 mls @ 1,000 mls/hr IV BOLUS ONE Stop: 12/30/22 20:27 Sodium Chloride (Normal Saline 0.9%) 1,779 mls @ 593 mls/hr 30 ml/kg infuse over 3 hr (1779 ml) IV NOW ONE Stop: 12/30/22 22:41 Last Infusion: 12/30/22 23:10 Dose: Infused Documented By: Admin: 12/30/22 19:52 Dose: 593 mls/hr Documented By: NEHA Ketorolac Tromethamine (Ketorolac 30 Mg/Ml Vial) 15 mg IV NOW ONE Stop: 12/30/22 20:53 Last Admin: 12/30/22 21:13 Dose: 15 mg Documented By: NEHA Methylprednisolone (Methylprednisolone 125 Mg/2 Ml Vial) 125 mg IV NOW ONE Stop: 12/30/22 19:31 Last Admin: 12/30/22 20:07 Dose: 125 mg Documented By: NEHA Non-Formulary Medication (Rosuvastatin) 10 mg PO BEDTIME PATO Non-Formulary Medication (Solifenacin [Vesicare]) 10 mg PO DAILY PATO Vital Signs Vital signs: Vital Signs - 8 hr 12/30/22 19:21 12/30/22 19:25 12/30/22 19:30 Temperature 103.6 F H Pulse Rate 111 H 117 H Respiratory Rate 34 H 34 H Blood Pressure 167/76 H 167/76 H Pulse Oximetry 85 L 93 Oxygen Delivery Method Room Air Nasal Cannula Oxygen Flow Rate 5 12/30/22 19:30 12/30/22 19:45 12/30/22 19:54 Temperature Pulse Rate 112 H 111 H 114 H Respiratory Rate 28 H 30 H 22 Blood Pressure Pulse Oximetry 94 96 98 Oxygen Delivery Method Nasal Cannula Oxygen Flow Rate 4 12/30/22 20:00 12/30/22 20:07 12/30/22 20:12 Temperature 103.6 F H Pulse Rate 119 H Respiratory Rate 49 H Blood Pressure 151/67 H Pulse Oximetry 93 Oxygen Delivery Method Oxygen Flow Rate 12/30/22 20:12 12/30/22 20:15 12/30/22 20:30 Temperature Pulse Rate 115 H 115 H Respiratory Rate 27 H 34 H Blood Pressure 149/66 H Pulse Oximetry 94 94 Oxygen Delivery Method Oxygen Flow Rate 12/30/22 20:30 12/30/22 20:41 12/30/22 20:41 Temperature 103.1 F H Pulse Rate 110 H 109 H Respiratory Rate 24 24 Blood Pressure 148/65 H Pulse Oximetry 92 93 Oxygen Delivery Method Nasal Cannula Nasal Cannula Oxygen Flow Rate 5 3.5 12/30/22 20:42 12/30/22 20:45 12/30/22 21:00 Temperature 103.1 F H Pulse Rate 108 H Respiratory Rate 23 Blood Pressure 138/65 Pulse Oximetry 92 Oxygen Delivery Method Oxygen Flow Rate 12/30/22 21:00 12/30/22 21:31 12/30/22 21:35 Temperature Pulse Rate 112 H 105 H Respiratory Rate 26 H 23 Blood Pressure 144/69 H Pulse Oximetry 93 96 Oxygen Delivery Method Oxygen Flow Rate 12/30/22 21:35 12/30/22 21:43 12/30/22 21:45 Temperature 102.5 F H 102.5 F H Pulse Rate 101 H 99 H Respiratory Rate 23 28 H Blood Pressure Pulse Oximetry 96 95 Oxygen Delivery Method Nasal Cannula Oxygen Flow Rate 3.5 12/30/22 22:00 12/30/22 22:00 12/30/22 22:15 Temperature Pulse Rate 96 H 97 H Respiratory Rate 19 23 Blood Pressure 131/58 L Pulse Oximetry 94 93 Oxygen Delivery Method Oxygen Flow Rate 12/30/22 22:30 12/30/22 22:30 Temperature Pulse Rate 92 H Respiratory Rate 20 Blood Pressure 122/59 L Pulse Oximetry 93 Oxygen Delivery Method Oxygen Flow Rate Sepsis Evaluation (ED) Triage Screening Sepsis Screen: Possible Severe Sepsis Risk Level 1 - Infection Sepsis Infection Criteria Present: Suspected New Infection Response It is my opinion that his patient have a likely infectious etiology for meeting sepsis criteria: Does Fluid calculation based on 30 mL/kg within 1hr of criteria: IBW used due to BMI>30 Antibiotics initiated within 1 hr of Sepis dx: Yes Tissue Perfusion Reassessed within 6 hrs of infusion start time: Yes Date of Tissue Perfusion Reassessment completed: 12/30/22 Time Tissue Perfusion Reassessment completed: 21:39 MDM - Sepsis Lab Data 12/30/22 19:50 12/30/22 19:50 Labs: Lab Results 12/30/22 12/30/22 12/30/22 Range/Units 19:28 19:40 19:50 WBC 19.0 H (4.5-11.0) X10^3/uL RBC 3.84 L (4.0-5.2) X10^6/uL Hgb 10.4 L (12.0-16.0) g/dL Hct 32.9 L (36-46) % MCV 85.8 (80-100) fL MCH 27.2 (26-34) PG MCHC 31.7 (30-36) % RDW 18.0 H (11.6-14.8) % Plt Count 378 (150-400) X10^3/uL Neut % (Auto) 86.9 H (50-75) % Lymph % (Auto) 5.9 L (25-40) % [place] % (Auto) 6.4 (3-14) % Eos % (Auto) 0.7 L (2-4) % Baso % (Auto) 0.1 (0-2) % Neut # (Auto) 56993 H (0371-7548) /uL Lymph # (Auto) 1100 (7957-1264) /uL [place] # (Auto) 1200 H (0-900) /uL Eos # (Auto) 100 (0-450) /uL Baso # (Auto) 0 (0-100) /uL PT 12.5 (10.1-12.7) SECONDS INR 1.1 (0.9-1.3) APTT 27 (26-36) SECONDS D-Dimer 97001 H (<500) ng/ml ABG pH 7.42 (7.35-7.45) ABG pCO2 36.0 (35-45) mmHg ABG pO2 65 L (80-100) mmHg ABG HCO3 23 (23-27) mmol/L ABG Total CO2 24 (23-27) mmol/L ABG O2 Saturation 93 L (95-100) % ABG Base Excess -1.0 (-2-3) mmol/L FiO2 40 Sodium 136 L (137-145) mmol/L Potassium 4.2 (3.4-5.1) mmol/L Chloride 98 (98-107) mmol/L Carbon Dioxide 26 (22-32) mmol/L BUN 22 H (7-17) mg/dL Creatinine 0.78 (0.52-1.04) mg/dL Estimated GFR > 60 (>60) mL/min BUN/Creatinine Ratio 28.2 H (6-22) Glucose 177 H (80-110) mg/dL Lactate 4.0 H (0.7-2.1) mmol/L Calcium 9.5 (8.4-10.2) mg/dL Total Bilirubin 0.5 (0.2-1.3) mg/dL AST 40 H (14-36) IU/L ALT 36 H (<35) IU/L Alkaline Phosphatase 96 (38-126) U/L Total Creatine Kinase 89 (30-135) U/L Troponin I < 0.012 (0.01-0.034) ng/mL NT-Pro-B Natriuret Pep 63 (<125) pg/mL Total Protein 7.0 (6.3-8.2) g/dL Albumin 4.1 (3.5-5.0) g/dL Globulin 2.9 (1.7-4.1) g/dL Albumin/Globulin Ratio 1.4 (1.0-2.8) Procalcitonin 0.16 (<0.5) ng/mL Urine Color Urine Appearance Urine pH (4.5-8.0) Ur Specific [place] (1.000-1.035) Urine Protein (Negative) Urine Glucose (UA) (Negative) g/dL Urine Ketones (NEGATIVE) Urine Occult Blood (Negative) Urine Nitrate (Negative) Urine Bilirubin (NEGATIVE) Urine Urobilinogen (0.2) E.U./dL Ur Leukocyte Esterase (NEGATIVE) Urine RBC (0-5/HPF) Urine WBC (0-5/HPF) Ur Squamous Epith Cells (0-5/HPF) Urine Bacteria (None) Ur Culture Indicated? U Opiates 300ng/mL cut (Negative) Ur Oxycodone Screen (Negative) Urine Methadone Screen (Negative) Ur Barbiturates Screen (Negative) U Tricyclic Antidepress (Negative) Ur Phencyclidine Scrn (Negative) Ur Amphetamines Screen (Negative) U Methamphetamines Scrn (Negative) Ur MDMA Scrn (Ecstasy) (Negative) U Benzodiazepines Scrn (Negative) Urine Cocaine Screen (Negative) U Marijuana (THC) Screen (Negative) Chlamy pneumoniae PCR Not detected (Not Detect) Adenovirus (PCR) Not detected (Not Detect) B.parapertussis DNA PCR Not detected (Not Detecte) Coronavirus OC43 (PCR) Not detected (Not Detect) Coronavirus HKU1 (PCR) Not detected (Not Detect) Coronavirus 229E (PCR) Not detected (Not Detect) SARS-CoV-2 (PCR) Detected (Not Detecte) Coronavirus NL63 (PCR) Not detected (Not Detect) Human Metapneumovir PCR Not detected (Not Detect) Influenza Type A (PCR) Not detected (Not Detect) Influenza Type B (PCR) Not detected (Not Detect) M. pneumoniae (PCR) Not detected (Not Detect) Parainfluenza 1 (PCR) Not detected (Not Detect) Parainfluenza 2 (PCR) Not detected (Not Detect) Parainfluenza 3 (PCR) Not detected (Not Detect) Parainfluenza 4 (PCR) Not detected (Not Detect) RSV (PCR) Not detected (Not Detect) Entero/Rhino (PCR) Not detected (Not Detect) 12/30/22 12/30/22 12/30/22 Range/Units 20:12 21:39 21:47 WBC (4.5-11.0) X10^3/uL RBC (4.0-5.2) X10^6/uL Hgb (12.0-16.0) g/dL Hct (36-46) % MCV (80-100) fL MCH (26-34) PG MCHC (30-36) % RDW (11.6-14.8) % Plt Count (150-400) X10^3/uL Neut % (Auto) (50-75) % Lymph % (Auto) (25-40) % [place] % (Auto) (3-14) % Eos % (Auto) (2-4) % Baso % (Auto) (0-2) % Neut # (Auto) (1389-2219) /uL Lymph # (Auto) (9565-2348) /uL [place] # (Auto) (0-900) /uL Eos # (Auto) (0-450) /uL Baso # (Auto) (0-100) /uL PT (10.1-12.7) SECONDS INR (0.9-1.3) APTT (26-36) SECONDS D-Dimer (<500) ng/ml ABG pH (7.35-7.45) ABG pCO2 (35-45) mmHg ABG pO2 (80-100) mmHg ABG HCO3 (23-27) mmol/L ABG Total CO2 (23-27) mmol/L ABG O2 Saturation (95-100) % ABG Base Excess (-2-3) mmol/L FiO2 Sodium (137-145) mmol/L Potassium (3.4-5.1) mmol/L Chloride (98-107) mmol/L Carbon Dioxide (22-32) mmol/L BUN (7-17) mg/dL Creatinine (0.52-1.04) mg/dL Estimated GFR (>60) mL/min BUN/Creatinine Ratio (6-22) Glucose (80-110) mg/dL Lactate 2.7 H (0.7-2.1) mmol/L Calcium (8.4-10.2) mg/dL Total Bilirubin (0.2-1.3) mg/dL AST (14-36) IU/L ALT (<35) IU/L Alkaline Phosphatase (38-126) U/L Total Creatine Kinase (30-135) U/L Troponin I (0.01-0.034) ng/mL NT-Pro-B Natriuret Pep (<125) pg/mL Total Protein (6.3-8.2) g/dL Albumin (3.5-5.0) g/dL Globulin (1.7-4.1) g/dL Albumin/Globulin Ratio (1.0-2.8) Procalcitonin (<0.5) ng/mL Urine Color Yellow Urine Appearance Clear Urine pH 5.0 (4.5-8.0) Ur Specific [place] 1.025 (1.000-1.035) Urine Protein Negative (Negative) Urine Glucose (UA) Negative (Negative) g/dL Urine Ketones Negative (NEGATIVE) Urine Occult Blood Negative (Negative) Urine Nitrate Positive H (Negative) Urine Bilirubin Negative (NEGATIVE) Urine Urobilinogen 0.2 (0.2) E.U./dL Ur Leukocyte Esterase Trace H (NEGATIVE) Urine RBC 0-1/hpf (0-5/HPF) Urine WBC 10-30/hpf H (0-5/HPF) Ur Squamous Epith Cells 1-5 /hpf (0-5/HPF) Urine Bacteria Many (>30) H (None) Ur Culture Indicated? Specimen cultured U Opiates 300ng/mL cut Negative (Negative) Ur Oxycodone Screen Positive H (Negative) Urine Methadone Screen Negative (Negative) Ur Barbiturates Screen Negative (Negative) U Tricyclic Antidepress Positive H (Negative) Ur Phencyclidine Scrn Negative (Negative) Ur Amphetamines Screen Negative (Negative) U Methamphetamines Scrn Negative (Negative) Ur MDMA Scrn (Ecstasy) Negative (Negative) U Benzodiazepines Scrn Negative (Negative) Urine Cocaine Screen Negative (Negative) U Marijuana (THC) Screen Negative (Negative) Chlamy pneumoniae PCR (Not Detect) Adenovirus (PCR) (Not Detect) B.parapertussis DNA PCR (Not Detecte) Coronavirus OC43 (PCR) (Not Detect) Coronavirus HKU1 (PCR) (Not Detect) Coronavirus 229E (PCR) (Not Detect) SARS-CoV-2 (PCR) (Not Detecte) Coronavirus NL63 (PCR) (Not Detect) Human Metapneumovir PCR (Not Detect) Influenza Type A (PCR) (Not Detect) Influenza Type B (PCR) (Not Detect) M. pneumoniae (PCR) (Not Detect) Parainfluenza 1 (PCR) (Not Detect) Parainfluenza 2 (PCR) (Not Detect) Parainfluenza 3 (PCR) (Not Detect) Parainfluenza 4 (PCR) (Not Detect) RSV (PCR) (Not Detect) Entero/Rhino (PCR) (Not Detect) Imaging Data Chest x-ray: Radiologist's Impression: [address] [address] XRay Report Signed Patient: Alena Shankar MR#: [id number] : 1950 Acct:[id number] Age/Sex: 72 / F Date of Service: 12/30/22 Loc: ED Accession Number: [id number] Procedure: XR chest 1V Ordering Provider: Anitha Floyd D.O. PROCEDURE: XR CHEST 1V INDICATIONS: SOB, fever, hypoxia; + covid early in month. TECHNIQUE: One view of the chest was acquired. COMPARISON: [facility], , XR CHEST 1V, 12/26/2022, 3:53. FINDINGS: Surgical changes and devices: Cervical fixation plate. Lungs and pleura: Mild increased pulmonary vascularity. Mediastinum: Mediastinal contours appear normal. Heart size is enlarged. Bones and chest wall: No suspicious bony lesions. Overlying soft tissues appear unremarkable. IMPRESSION: Mild increased pulmonary vascularity suggestive of edema. Dictated by: Alison Blanchard M.D. on 12/30/2022 at 19:46 Approved by: Alison Blanchard M.D. on 12/30/2022 at 19:47 CT scan - head: Radiologist's Impression: [address] [address] [address] Scan Report Signed Patient: Alena Shankar MR#: [id number] : 1950 Acct:[id number] Age/Sex: 72 / F Date of Service: 12/30/22 Loc: ED Accession Number: [id number] Procedure: CT head/brain wo con Ordering Provider: Anitha Floyd D.O. PROCEDURE: CT HEAD/BRAIN WO CON INDICATIONS: Hypoxia; cough. TECHNIQUE: Noncontrast 4.5 mm thick angled axial sections acquired from the foramen magnum to the vertex, with coronal and sagittal reformats. For radiation dose reduction, the following was used: automated exposure control, adjustment of mA and/or kV according to patient size. COMPARISON: None. FINDINGS: Image quality: Excellent. CSF spaces: Basal cisterns are patent. No extra-axial fluid collections. The ventricles are symmetric in size and shape. Brain: No intracranial bleeds or masses. There is cerebral volume loss for age, with resultant ventricular and sulcal prominence. There are periventricular and deep white matter chronic small vessel ischemic changes. There is intracranial internal carotid artery atherosclerosis. Skull and face: Calvarium and visualized facial bones appear intact, without suspicious lesions. Sinuses: Visualized sinuses and mastoids are clear. IMPRESSION: Mild age related microvascular atherosclerotic change, no acute disease. Dictated by: Paul Mei M.D. on 12/30/2022 at 22:04 Approved by: Paul Mei M.D. on 12/30/2022 at 22:04 CT scan - chest: Radiologist's Impression: [place] [address] CT Scan Report Signed Patient: Alena Shankar MR#: [id number] : 1950 Acct:[id number] Age/Sex: 72 / F Date of Service: 12/30/22 Loc: ED Accession Number: [id number] Procedure: CT angio chest PE protocol Ordering Provider: Anitha Floyd D.O. PROCEDURE: CT ANGIO CHEST PE PROTOCOL INDICATIONS: Hypoxia; cough. TECHNIQUE: After the administration of intravenous contrast, 2 mm thick sections acquired from the pulmonary apices to the posterior costophrenic angles. 3-dimensional maximum intensity projection (MIP) coronal and sagittal reformats were then acquired through the thorax. For radiation dose reduction, the following was used: automated exposure control, adjustment of mA and/or kV according to patient size. COMPARISON: None. FINDINGS: Image quality: Excellent. Pulmonary arteries: Pulmonary arteries are normal in size, and demonstrate no intraluminal filling defects to suggest central pulmonary embolism. Lungs and pleura: Lungs are abnormal with a patchy alveolar infiltration pattern that is nonspecific but could represent heterogeneous pulmonary edema from cardiogenic etiology. Atypical pneumonia is a potential alternative cause. No pleural effusions or pneumothorax. Central and peripheral airways are patent. Mediastinum: Heart size is normal, without pericardial effusion. No mediastinal or hilar adenopathy. Thoracic aorta is normal in caliber and enhancement. Esophagus is normal in caliber, without hiatal hernia. Bones and chest wall: No suspicious bony lesions. Ribs and thoracic spine appear intact throughout. Thyroid gland is not well seen. No axillary or supraclavicular adenopathy. Abdomen: Visualized upper abdominal solid organs appear normal in the early arterial phase of enhancement. IMPRESSION: No pulmonary embolus found. Note is made of patchy bilateral alveolar prominence within the lung parenchyma which is considered more likely to represent a manifestation of cardiogenic pulmonary edema than atypical pneumonia. Dictated by: Paul Mei M.D. on 12/30/2022 at 22:05 Approved by: Paul Mei M.D. on 12/30/2022 at 22:07 ECG Data Attestation: I personally reviewed and interpreted this ECG as follows: Interpretation: Patient has quite a bit of motion artifact between her cough and movement with her confusion unable to get a good reading initially. We will attempt to repeat in lateral leads no obvious ST elevation or depression noted lead 1 appears appropriate. MDM Narrative Medical decision making narrative: 72-year-old female with recent respiratory infection febrile tachycardic, tachypneic not hypotensive but hypoxic on room air, patient has had fairly new onset confusion with recent respiratory infection. Patient's does respond to oxygen comes up with 4-5 L. But is quite sensitive if it comes off she drops down immediately. Patient's right base in particular seems more decreased and she has rhonchi and crackles. Patient is high-risk for infection secondary to immune suppression from her medications including methotrexate and ritonavir. Patient's ABG shows a pH of 7.45 with a pCO2 of 36 PO2 of 65 on 5 L the bicarb of 23. Chest x-ray appears to show pneumonia preliminary review. Patient started on 30 cc/kilos bolus ideal body weight, antibiotics, steroids, patient did not have DuoNeb ordered to see if this would open up her base there maybe a component of reactive airway. Labs including CBC, CMP, lactate, protocol, troponin and BNP were included. Labs support bacterial infection with a white count of 19, lactate of 4, patient has a appropriate renal function, electrolytes negative troponin and BNP, procalcitonin is 0.16. Glucose is 177, calcium appropriate at 9.5 with AST ALT of 40 and 36 normal bilirubin. Coags show no acute change to INR PTT, dimer is now 13,000 up from 1053 on 12/26/22. Respiratory panel positive for COVID. Recheck after DuoNeb patient does not have any wheeze but is little bit clear. Did not make a significant change in her oxygenation. Has not had any persistent hypotension tachycardia slowly improving. Patient has been maintaining her O2 sat in the mid 90% range. Was found to have a UA from 12/26/2022 which was nitrate positive and is once again nitrate positive today here in the department. Patient was started on Rocephin for potential pneumonia as well as UTI sepsis. Reviewed patient's workup from several days ago her D- dimer was significantly elevated at that time in the 1000 range and she is quite hypoxic with tachycardia today so CT angio was obtained as well as head is her notes that she fell he did not think that she hit her head but that is when he noticed her alteration in mental status. Imaging was obtained head CT shows no acute change. CT angio of chest negative for pulmonary emboli has patchy by bilateral alveolar prominence of the lung parenchyma nonspecific could represent heterogeneous pulmonary edema from cardiac etiology but atypical pneumonias potential alternative cause no pleural effusions or pneumothorax. With patient's symptoms, her respiratory panel is still positive for COVID. Patient is now able to tell me she tested positive initially on December 16 I suspect patient likely has COVID pneumonia, possibly bacterial infection but also has a positive urine culture with E coli greater than 100,000 that is pansensitive from 12/26/2022. This could also have contributed patient's altered mental status and her elevated temperature as her temperature is improved she is much more conversant and appropriate her appreciates improvement as well. Spoke with Dr. Amor, telehospitalist: Accepts for admission for sepsis, likely COVID pneumonia with potential bacterial, has positive urine culture from 12/26/2022 with likely acute delirium improving as her temperature improves. Accepts for inpatient admission O2 is now at 3.5 L we down from 5. Critical Care Time Critical Care Time Critical Care Time: Yes Total Critical Care Time: 50 Attestation: The high probability of a clinically significant, sudden or life threatening deterioration of the [cardiac, pulm] system(s) required my full and direct attention, intervention and personal management. The aggregate critical care time was [50] minutes. This time is in addition to time spent performing reported procedures but includes the following: [x] Data Review and interpretation [x] Patient assessment and monitoring of vital signs [x] Documentation [x] Medication orders and management Discharge Plan Departure Patient Disposition: Admitted As Inpatient Clinical Impression: Acute hypoxic respiratory failure, Pneumonia, E. coli urinary tract infection, Sepsis Admit Date/Time: 12/30/22 22:38 Admit Provider: Nathan Amor
[2022-12-30] MEDS: SODIUM CHLORIDE 0.9% 1,779 ML 593 ML IV (19:52)
[2022-12-30] MEDS: ALBUTEROL/IPRATROPIUM 3 ML AMPUL INH (19:53)
[2022-12-30 20:01] LABS: Add Manual Diff / Slide Review NO; Basophils Absolute Auto 0 /uL (0-100); Basophils Percent Auto 0.1 % (0-2); Eosinophils Absolute Auto 100 /uL (0-450); Eosinophils Percent Auto 0.7 % (2-4); Hematocrit 32.9 % (36-46); Hemoglobin 10.4 g/dL (12.0-16.0); Lymphocytes Absolute Auto 1100 /uL (1100-4500); Lymphocytes Percent Auto 5.9 % (25-40); Mean Corpuscular HGB Conc 31.7 % (30-36); Mean Corpuscular Hemoglobin 27.2 PG (26-34); Mean Corpuscular Volume 85.8 fL (80-100); Monocytes Absolute Auto 1200 /uL (0-900); Monocytes Percent Auto 6.4 % (3-14); Neutrophils Absolute Auto 16500 /uL (1500-7000); Neutrophils Percent Auto 86.9 % (50-75); Platelet Count 378 X10^3/uL (150-400); Red Blood Cell Count 3.84 X10^6/uL (4.0-5.2)
[2022-12-30] MEDS: methylPREDNISolone 125 MG/2 ML VIAL IV (20:07)
[2022-12-30] MEDS: ACETAMINOPHEN 650 MG SUPP PR (20:07)
[2022-12-30 20:21] LABS: Alanine Aminotransferase 36 IU/L (<35); Albumin 4.1 g/dL (3.5-5.0); Albumin Globulin Ratio 1.4 (1.0-2.8); Alkaline Phosphatase 96 U/L (38-126); Aspartate Aminotransferase 40 IU/L (14-36); BUN Creatinine Ratio 28.2 (6-22); Bilirubin Total 0.5 mg/dL (0.2-1.3); Blood Urea Nitrogen 22 mg/dL (7-17); Calcium 9.5 mg/dL (8.4-10.2); Carbon Dioxide 26 mmol/L (22-32); Chloride 98 mmol/L (98-107); Creatine Kinase 89 U/L (30-135); Estimated Glomerular Filt Rate > 60 mL/min (>60); Globulin 2.9 g/dL (1.7-4.1); Glucose 177 mg/dL (80-110); HEMOLYSIS < 15 (0-50); Potassium 4.2 mmol/L (3.4-5.1); Sodium 136 mmol/L (137-145)
[2022-12-30] MEDS: cefTRIAXone 2,000 MG in SODIUM CHLORIDE 0.9% 100 ML 200 MG IV (20:26)
[2022-12-30 20:31] LABS: Adenovirus Not Detected (Not Detect); B. parapertussis Not Detected (Not Detecte); Bordetella pertussis Not Detected (Not Detect); Chlamydophila pneumoniae Not Detected (Not Detect); Coronavirus 229E Not Detected (Not Detect); Coronavirus HKU1 Not Detected (Not Detect); Coronavirus NL 63 Not Detected (Not Detect); Coronavirus OC43 Not Detected (Not Detect); Human Metapneumovirus Not Detected (Not Detect); Human Rhinovirus/Enterovirus Not Detected (Not Detect); Influenza A Not Detected (Not Detect); Influenza B Not Detected (Not Detect); Mycoplasma pneumoniae Not Detected (Not Detect); Parainfluenza Virus 1 Not Detected (Not Detect); Parainfluenza Virus 2 Not Detected (Not Detect); Parainfluenza Virus 3 Not Detected (Not Detect); Parainfluenza Virus 4 Not Detected (Not Detect); Respiratory Syncytial Virus Not Detected (Not Detect); SARS- CoV-2 Detected (Not Detecte)
[2022-12-30 20:33] LABS: NT-proBNP (BNP-Adult 18+) 63 pg/mL (<125); Troponin I < 0.012 ng/mL (0.01-0.034)
[2022-12-30 20:37] LABS: Procalcitonin 0.16 ng/mL (<0.5)
[2022-12-30 20:37] LABS: HCO3 ABG 23 mmol/L (23-27); Oxygen Saturation ABG 93 % (95-100); PO2 ABG 65 mmHg (80-100); TCO2 ABG 24 mmol/L (23-27); pH ABG 7.42 (7.35-7.45)
[2022-12-30 20:37] LABS: Appearance Urine UA CLEAR; Bilirubin Urine UA NEGATIVE (NEGATIVE); Color Urine UA YELLOW; Glucose Urine UA NEGATIVE (Negative); Ketones Urine UA NEGATIVE (NEGATIVE); Leukocyte Esterase Urine UA TRACE (NEGATIVE); Nitrite Urine UA POSITIVE (Negative); Occult Blood Urine UA NEGATIVE (Negative); Protein Urine UA NEGATIVE (Negative); Specific Gravity Urine UA 1.025 (1.000-1.035); Urobilinogen Urine UA 0.2 E.U./dL (0.2)
[2022-12-30 20:38] LABS: Fractionated Inspired Oxygen 40
[2022-12-30 20:47] LABS: PTT Partial Thromboplastin Tim 27 SECONDS (26-36)
--- NOTE | 2022-12-30 20:52 | DI.CT.S_ITS ---
PROCEDURE: CT ANGIO CHEST PE PROTOCOL INDICATIONS: Hypoxia; cough. TECHNIQUE: After the administration of intravenous contrast, 2 mm thick sections acquired from the pulmonary apices to the posterior costophrenic angles. 3-dimensional maximum intensity projection (MIP) coronal and sagittal reformats were then acquired through the thorax. For radiation dose reduction, the following was used: automated exposure control, adjustment of mA and/or kV according to patient size. COMPARISON: None. FINDINGS: Image quality: Excellent. Pulmonary arteries: Pulmonary arteries are normal in size, and demonstrate no intraluminal filling defects to suggest central pulmonary embolism. Lungs and pleura: Lungs are abnormal with a patchy alveolar infiltration pattern that is nonspecific but could represent heterogeneous pulmonary edema from cardiogenic etiology. Atypical pneumonia is a potential alternative cause. No pleural effusions or pneumothorax. Central and peripheral airways are patent. Mediastinum: Heart size is normal, without pericardial effusion. No mediastinal or hilar adenopathy. Thoracic aorta is normal in caliber and enhancement. Esophagus is normal in caliber, without hiatal hernia. Bones and chest wall: No suspicious bony lesions. Ribs and thoracic spine appear intact throughout. Thyroid gland is not well seen. No axillary or supraclavicular adenopathy. Abdomen: Visualized upper abdominal solid organs appear normal in the early arterial phase of enhancement. IMPRESSION: No pulmonary embolus found. Note is made of patchy bilateral alveolar prominence within the lung parenchyma which is considered more likely to represent a manifestation of cardiogenic pulmonary edema than atypical pneumonia. Dictated by: Paul Mei M.D. on 12/30/2022 at 22:05 Approved by: Paul Mei M.D. on 12/30/2022 at 22:07
--- NOTE | 2022-12-30 20:52 | DI.CT.S_ITS ---
PROCEDURE: CT HEAD/BRAIN WO CON INDICATIONS: Hypoxia; cough. TECHNIQUE: Noncontrast 4.5 mm thick angled axial sections acquired from the foramen magnum to the vertex, with coronal and sagittal reformats. For radiation dose reduction, the following was used: automated exposure control, adjustment of mA and/or kV according to patient size. COMPARISON: None. FINDINGS: Image quality: Excellent. CSF spaces: Basal cisterns are patent. No extra-axial fluid collections. The ventricles are symmetric in size and shape. Brain: No intracranial bleeds or masses. There is cerebral volume loss for age, with resultant ventricular and sulcal prominence. There are periventricular and deep white matter chronic small vessel ischemic changes. There is intracranial internal carotid artery atherosclerosis. Skull and face: Calvarium and visualized facial bones appear intact, without suspicious lesions. Sinuses: Visualized sinuses and mastoids are clear. IMPRESSION: Mild age related microvascular atherosclerotic change, no acute disease. Dictated by: Paul Mei M.D. on 12/30/2022 at 22:04 Approved by: Paul Mei M.D. on 12/30/2022 at 22:04
[2022-12-30 20:54] LABS: INR 1.1 (0.9-1.3); Prothrombin Time 12.5 SECONDS (10.1-12.7)
[2022-12-30 20:56] LABS: RBC Urine 0-1/HPF (0-5/HPF); WBC Urine 10-30/HPF (0-5/HPF)
[2022-12-30 20:57] LABS: Bacteria Urine Many (>30); Culture Indicated Urine Specimen Cultured; Squamous Epithelial Cell Urine 1-5 /HPF (0-5/HPF)
[2022-12-30] MEDS: KETOROLAC 30 MG/ML VIAL 15 MG IV (21:13)
[2022-12-30 21:15] LABS: D Dimer 13007 ng/ml (<500)
[2022-12-30 21:34] LABS: Reflexed Lactate in 2 Hours Y
[2022-12-30 21:58] LABS: UR Morphine/Opiate cutoff 300 Negative (Negative); Ur Creatinine Normal (Normal); Ur Specific Gravity Normal (Normal); Urine Amphetamines Negative (Negative); Urine Barbiturates Negative (Negative); Urine Benzodiazepines Negative (Negative); Urine Cocaine Negative (Negative); Urine MDMA Negative (Negative); Urine Methadone Negative (Negative); Urine Methamphetamines Negative (Negative); Urine Oxycodone Positive (Negative); Urine Phencyclidine Negative (Negative); Urine Tetrahydrocannabinol Negative (Negative); Urine Tricyclic Antidepressant Positive (Negative); Urine pH Normal (Normal)
[2022-12-30 22:01] LABS: Lactate 2HR (Lactic Acid Rflx) 2.7 mmol/L (0.7-2.1)
[2022-12-31] VITALS (13 sets, daily range): BP systolic 112–124; BP diastolic 46–91; PULSE 73–82; RESP 18–21; TEMP 35.6–36.6; O2SAT 92–98
--- NOTE | 2022-12-31 00:36 | P.HP_ITS ---
History of Present Illness History of Present Illness Date Patient Seen: 12/31/22 Time Patient Seen: 00:36 Date of Onset of Symptoms: 12/14/22 Chief complaint: resp distress/ fever Narrative: The pt is a 72 yo with a hx of Crohns disease on methotrexate, Fibromyalgia on high dose gabapentin who started developing cough, congestion, rhinorrhea, body aches around the 5th of this month and tested positive on a home COVID test. Her symptoms slowly began to worse with dyspnea and some orthopena, sleeping in a chair. She came to the ER on 12/26 due to worsening cough and SOB and was sent home and told to isolate. She came back tonight due to worsening dsypnea and SOB. During my visit she had constant coughing and appears very fatigued, FOR[facility]LY [facility] Medical History History of squamous cell carcinoma History of basal cell cancer Foot pain (~2013) Measles (~1958) History of cold sores (~1964) Chicken pox (~1957) Anemia Vertigo (~2007) Human papilloma virus (~2009) History of urinary incontinence (~2013) Fatty liver (~2004) Hemorrhoid GI bleeding (~2004) Colon polyps Skin cancer History of liver disease History of skin cancer Hx of hyperlipidemia OAB (overactive bladder) Thyroid nodule (~2017) Peripheral neuropathy (~2004) Crohn disease (~2004) Psoriatic arthritis (~2003) Benign essential HTN Type 2 diabetes mellitus with insulin therapy (~2012) Surgical History Anesthesia History of bunionectomy Lumbar stenosis History of tonsillectomy and adenoidectomy (~1954) History of knee replacement History of back surgery (~2008) Family History Father Rheumatoid arthritis Cancer Mother Parkinsons disease Skin cancer Grandmother Cancer Diabetes mellitus Brother Kidney stones Diabetes mellitus Skin cancer Grandfather Cancer Grandmother Mental health problem Grandfather Asthma Family/Other History of IBS Social History marital status: number of children: 2 household members: spouse occupational status: employed Smoking Status: Never smoker alcohol intake: current substance use type: does not use caffeine: Yes Type(s) of exercise: none Meds Home Medications and Allergies Home Medications Medication Instructions Recorded Confirmed Type duloxetine 60 mg capsule,delayed 60 mg PO DAILY #90 caps 03/21/22 12/30/22 Rx release (Cymbalta) insulin glargine 100 unit/mL (3 18 unit SUBCUT BID 03/21/22 12/30/22 History mL) subcutaneous pen (Lantus Solostar U-100 Insulin) insulin lispro 100 unit/mL 6 - 10 unit SUBCUT TID 03/21/22 12/30/22 History subcutaneous pen rosuvastatin 10 mg tablet 10 mg PO BEDTIME 03/21/22 12/31/22 History gabapentin 600 mg tablet See Rx Instructions .Route 03/23/22 12/31/22 Rx .COMPLEX #90 tabs cyclobenzaprine 10 mg tablet 10 mg PO BEDTIME #90 tabs 03/27/22 12/30/22 Rx flash glucose sensor (FreeStyle #6 ea 04/04/22 12/30/22 Rx Davi 14 Day Sensor kit) folic acid 1 mg tablet 1 mg PO DAILY 07/10/22 12/30/22 History magnesium oxide 500 mg tablet 500 mg PO BID 07/10/22 12/31/22 History metformin 1,000 mg PO BID 07/10/22 12/31/22 History valacyclovir 500 mg tablet 500 mg PO BID 07/10/22 12/30/22 History famotidine 20 mg tablet (Pepcid) 20 mg PO BID 07/11/22 12/30/22 History solifenacin 10 mg tablet (Vesicare) 10 mg PO DAILY #90 tabs 07/14/22 12/31/22 Rx methotrexate sodium 25 mg/mL 25 mg IM QWEEK 09/26/22 12/31/22 History injection solution risankizumab-rzaa 150 mg/mL 150 mg SUBCUT [id number] 09/26/22 12/31/22 History subcutaneous pen injector (Skyrizindira) benzonatate 100 mg capsule 100 mg PO BID-TID PRN cough #14 12/26/22 12/30/22 Rx caps oxycodone-acetaminophen 5 mg-325 1 tab PO Q6H PRN pain or cough #14 10/17/23 10/22/23 Rx mg tablet tabs losartan 25 mg tablet 25 mg PO BEDTIME 12/31/22 12/31/22 History Allergies Allergy/AdvReac Type Severity Reaction Status Date / Time adhesive tape Allergy Unknown Verified 09/26/22 13:55 codeine Allergy Unknown Verified 09/26/22 13:55 mesalamine [From Asacol] AdvReac Unknown Verified 09/26/22 13:55 Exam Vital Signs (past 8 hours): - 12/30/22 19:21 12/30/22 19:25 12/30/22 19:30 Temperature 103.6 F H Pulse Rate 111 H 117 H Respiratory Rate 34 H 34 H Blood Pressure 167/76 H 167/76 H Pulse Oximetry 85 L 93 Oxygen Delivery Method Room Air Nasal Cannula Oxygen Flow Rate 5 12/30/22 19:30 12/30/22 19:45 12/30/22 19:54 Temperature Pulse Rate 112 H 111 H 114 H Respiratory Rate 28 H 30 H 22 Blood Pressure Pulse Oximetry 94 96 98 Oxygen Delivery Method Nasal Cannula Oxygen Flow Rate 4 12/30/22 20:00 12/30/22 20:07 12/30/22 20:12 Temperature 103.6 F H Pulse Rate 119 H Respiratory Rate 49 H Blood Pressure 151/67 H Pulse Oximetry 93 Oxygen Delivery Method Oxygen Flow Rate 12/30/22 20:12 12/30/22 20:15 12/30/22 20:30 Temperature Pulse Rate 115 H 115 H Respiratory Rate 27 H 34 H Blood Pressure 149/66 H Pulse Oximetry 94 94 Oxygen Delivery Method Oxygen Flow Rate 12/30/22 20:30 12/30/22 20:41 12/30/22 20:41 Temperature 103.1 F H Pulse Rate 110 H 109 H Respiratory Rate 24 24 Blood Pressure 148/65 H Pulse Oximetry 92 93 Oxygen Delivery Method Nasal Cannula Nasal Cannula Oxygen Flow Rate 5 3.5 12/30/22 20:42 12/30/22 20:45 12/30/22 21:00 Temperature 103.1 F H Pulse Rate 108 H Respiratory Rate 23 Blood Pressure 138/65 Pulse Oximetry 92 Oxygen Delivery Method Oxygen Flow Rate 12/30/22 21:00 12/30/22 21:31 12/30/22 21:35 Temperature Pulse Rate 112 H 105 H Respiratory Rate 26 H 23 Blood Pressure 144/69 H Pulse Oximetry 93 96 Oxygen Delivery Method Oxygen Flow Rate 12/30/22 21:35 10/21/23 21:43 12/30/22 21:45 Temperature 102.5 F H 102.5 F H Pulse Rate 101 H 99 H Respiratory Rate 23 28 H Blood Pressure Pulse Oximetry 96 95 Oxygen Delivery Method Nasal Cannula Oxygen Flow Rate 3.5 12/30/22 22:00 12/30/22 22:00 12/30/22 22:15 Temperature Pulse Rate 96 H 97 H Respiratory Rate 19 23 Blood Pressure 131/58 L Pulse Oximetry 94 93 Oxygen Delivery Method Oxygen Flow Rate 12/30/22 22:30 12/30/22 22:30 12/30/22 22:45 Temperature Pulse Rate 92 H 100 H Respiratory Rate 20 28 H Blood Pressure 122/59 L Pulse Oximetry 93 94 Oxygen Delivery Method Oxygen Flow Rate 12/30/22 22:53 12/30/22 22:53 12/30/22 23:00 Temperature Pulse Rate 98 H 94 H Respiratory Rate 35 H 27 H Blood Pressure 161/68 H Pulse Oximetry 92 90 L Oxygen Delivery Method Nasal Cannula Oxygen Flow Rate 3.5 12/30/22 23:01 12/30/22 23:01 12/30/22 23:20 Temperature 99.2 F Pulse Rate 95 H 94 H Respiratory Rate 26 H 19 Blood Pressure 133/60 121/54 L Pulse Oximetry 92 93 Oxygen Delivery Method Nasal Cannula Oxygen Flow Rate 3.5 3.5 Oxygen Delivery Method Nasal Cannula Oxygen Flow Rate 3.5 Const General: acute distress and ill appearing Eyes Conjunctivae: conjunctivae normal Neck Neck: full ROM Resp Auscultation: rales and rhonchi Cardio Rate: regular rate Rhythm: regular rhythm Heart Sounds: no murmurs GI Auscultation: normal bowel sounds Objective Labs 12/30/22 19:50 12/30/22 19:50 Labs: Laboratory Results - last 24 hr 12/30/22 12/30/22 12/30/22 19:28 19:40 19:50 WBC 19.0 H RBC 3.84 L Hgb 10.4 L Hct 32.9 L MCV 85.8 MCH 27.2 MCHC 31.7 RDW 18.0 H Plt Count 378 Neut % (Auto) 86.9 H Lymph % (Auto) 5.9 L [place] % (Auto) 6.4 Eos % (Auto) 0.7 L Baso % (Auto) 0.1 Neut # (Auto) 96813 H Lymph # (Auto) 1100 [place] # (Auto) 1200 H Eos # (Auto) 100 Baso # (Auto) 0 PT 12.5 INR 1.1 APTT 27 D-Dimer 39420 H ABG pH 7.42 ABG pCO2 36.0 ABG pO2 65 L ABG HCO3 23 ABG Total CO2 24 ABG O2 Saturation 93 L ABG Base Excess -1.0 FiO2 40 Sodium 136 L Potassium 4.2 Chloride 98 Carbon Dioxide 26 BUN 22 H Creatinine 0.78 Estimated GFR > 60 BUN/Creatinine Ratio 28.2 H Glucose 177 H Lactate 4.0 H Calcium 9.5 Total Bilirubin 0.5 AST 40 H ALT 36 H Alkaline Phosphatase 96 Total Creatine Kinase 89 Troponin I < 0.012 NT-Pro-B Natriuret Pep 63 Total Protein 7.0 Albumin 4.1 Globulin 2.9 Albumin/Globulin Ratio 1.4 Procalcitonin 0.16 Urine Color Urine Appearance Urine pH Ur Specific [place] Urine Protein Urine Glucose (UA) Urine Ketones Urine Occult Blood Urine Nitrate Urine Bilirubin Urine Urobilinogen Ur Leukocyte Esterase Urine RBC Urine WBC Ur Squamous Epith Cells Urine Bacteria Ur Culture Indicated? U Opiates 300ng/mL cut Ur Oxycodone Screen Urine Methadone Screen Ur Barbiturates Screen U Tricyclic Antidepress Ur Phencyclidine Scrn Ur Amphetamines Screen U Methamphetamines Scrn Ur MDMA Scrn (Ecstasy) U Benzodiazepines Scrn Urine Cocaine Screen U Marijuana (THC) Screen Chlamy pneumoniae PCR Not detected Adenovirus (PCR) Not detected B.parapertussis DNA PCR Not detected Coronavirus OC43 (PCR) Not detected Coronavirus HKU1 (PCR) Not detected Coronavirus 229E (PCR) Not detected SARS-CoV-2 (PCR) Detected Coronavirus NL63 (PCR) Not detected Human Metapneumovir PCR Not detected Influenza Type A (PCR) Not detected Influenza Type B (PCR) Not detected M. pneumoniae (PCR) Not detected Parainfluenza 1 (PCR) Not detected Parainfluenza 2 (PCR) Not detected Parainfluenza 3 (PCR) Not detected Parainfluenza 4 (PCR) Not detected RSV (PCR) Not detected Entero/Rhino (PCR) Not detected 12/30/22 12/30/22 12/30/22 20:12 21:39 21:47 WBC RBC Hgb Hct MCV MCH MCHC RDW Plt Count Neut % (Auto) Lymph % (Auto) [place] % (Auto) Eos % (Auto) Baso % (Auto) Neut # (Auto) Lymph # (Auto) [place] # (Auto) Eos # (Auto) Baso # (Auto) PT INR APTT D-Dimer ABG pH ABG pCO2 ABG pO2 ABG HCO3 ABG Total CO2 ABG O2 Saturation ABG Base Excess FiO2 Sodium Potassium Chloride Carbon Dioxide BUN Creatinine Estimated GFR BUN/Creatinine Ratio Glucose Lactate 2.7 H Calcium Total Bilirubin AST ALT Alkaline Phosphatase Total Creatine Kinase Troponin I NT-Pro-B Natriuret Pep Total Protein Albumin Globulin Albumin/Globulin Ratio Procalcitonin Urine Color Yellow Urine Appearance Clear Urine pH 5.0 Ur Specific [place] 1.025 Urine Protein Negative Urine Glucose (UA) Negative Urine Ketones Negative Urine Occult Blood Negative Urine Nitrate Positive H Urine Bilirubin Negative Urine Urobilinogen 0.2 Ur Leukocyte Esterase Trace H Urine RBC 0-1/hpf Urine WBC 10-30/hpf H Ur Squamous Epith Cells 1-5 /hpf Urine Bacteria Many (>30) H Ur Culture Indicated? Specimen cultured U Opiates 300ng/mL cut Negative Ur Oxycodone Screen Positive H Urine Methadone Screen Negative Ur Barbiturates Screen Negative U Tricyclic Antidepress Positive H Ur Phencyclidine Scrn Negative Ur Amphetamines Screen Negative U Methamphetamines Scrn Negative Ur MDMA Scrn (Ecstasy) Negative U Benzodiazepines Scrn Negative Urine Cocaine Screen Negative U Marijuana (THC) Screen Negative Chlamy pneumoniae PCR Adenovirus (PCR) B.parapertussis DNA PCR Coronavirus OC43 (PCR) Coronavirus HKU1 (PCR) Coronavirus 229E (PCR) SARS-CoV-2 (PCR) Coronavirus NL63 (PCR) Human Metapneumovir PCR Influenza Type A (PCR) Influenza Type B (PCR) M. pneumoniae (PCR) Parainfluenza 1 (PCR) Parainfluenza 2 (PCR) Parainfluenza 3 (PCR) Parainfluenza 4 (PCR) RSV (PCR) Entero/Rhino (PCR) Assessment & Plan Assessment and plan (1) Sepsis: Status: Acute (2) Acute hypoxic respiratory failure: Status: Acute (3) COVID-19: Status: Acute (4) Pneumonia: Status: Acute (5) E. coli urinary tract infection: Status: Acute (6) Type 2 diabetes mellitus with insulin therapy: Status: Acute Plan Will admit the pt for monitoring, initally she was on 6 lpm NC but we have weaned her down to 3 lpm NC. I discussed the pt's case with the ER provider and agree with the decision for admission, she is in respiratory failure. I have reviewed the CT chest showing no PE despite elevated D-dimer, labs reviewed whowing WBC of 19, hgb stable. CThead performed due to her confusion which is mild, no abnormalities. I have started the pt on rocephin and doxycycline as well as IV decadron 6 mg daily. Breathing tx prn, and duoneb scheduled, holding the methotrexate, starting on insulin SS for her diabetes, checking A1c, accuchecks, The pt is failing her bedside swallow test and will get speech therapy consulted Quality VTE Deep Vein Thrombosis/Pulmonary Embolism Present on Admission: No
[2022-12-31] MEDS: SODIUM CHLORIDE 0.9% 1,000 ML 100 ML IV ×2 (00:51→21:00)
[2022-12-31] MEDS: MORPHINE 2 MG/ML INJ IV (01:23)
[2022-12-31] MEDS: ALBUTEROL 2.5 MG/3 ML NEB (ADULT) INH (03:00)
[2022-12-31 05:48] LABS: BUN Creatinine Ratio 26.4 (6-22); Blood Urea Nitrogen 19 mg/dL (7-17); Calcium 9.1 mg/dL (8.4-10.2); Carbon Dioxide 26 mmol/L (22-32); Chloride 103 mmol/L (98-107); Estimated Glomerular Filt Rate > 60 mL/min (>60); Glucose 174 mg/dL (80-110); HEMOLYSIS < 15 (0-50); Hematocrit 29.9 % (36-46); Hemoglobin 9.5 g/dL (12.0-16.0); Mean Corpuscular HGB Conc 31.8 % (30-36); Mean Corpuscular Hemoglobin 27.2 PG (26-34); Mean Corpuscular Volume 85.6 fL (80-100); Platelet Count 339 X10^3/uL (150-400); Potassium 4.3 mmol/L (3.4-5.1); Red Blood Cell Count 3.49 X10^6/uL (4.0-5.2); Red Cell Distribution Width 17.5 % (11.6-14.8); Sodium 138 mmol/L (137-145); White Blood Cell Count 29.4 X10^3/uL (4.5-11.0)
[2022-12-31 05:50] LABS: Add Manual Diff / Slide Review YES
[2022-12-31 06:18] LABS: Hemoglobin A1C% w Est Avg Glu 7.1 % (4.0-6.0)
[2022-12-31 07:08] LABS: Neutrophils Absolute Manual 26166 /uL (3000-5900); Total Cells Counted 100
[2022-12-31 07:09] LABS: Anisocytosis 1+
[2022-12-31] MEDS: ALBUTEROL/IPRATROPIUM 3 ML AMPUL INH ×2 (07:56→18:46)
[2022-12-31] MEDS: ENOXAPARIN 40 MG/0.4 ML SYRINGE SUBCUT (10:10)
[2022-12-31] MEDS: DEXAMETHASONE 10 MG/ML VIAL 6 MG IV (10:10)
[2022-12-31] MEDS: BENZONATATE 100 MG CAPSULE PO ×3 (13:34→23:32)
--- NOTE | 2022-12-31 14:06 | P.HP_ITS ---
History of Present Illness History of Present Illness Date Patient Seen: 12/31/22 Time Patient Seen: 14:06 Chief complaint: resp distress/ fever Narrative: 72-year-old female with history of psoriatic arthritis, Crohn's disease on methotrexate, hypertension, diabetes, peripheral neuropathy and depression was seen here on 12/26/2022 for cough. Patient was noted to have a recent COVID infection tested negative reportedly earlier in the week. Patient has had fevers, cough, shortness of breath, reportedly became confused fairly abruptly earlier today. She is found to be hypoxic with EMS is 86% room air here. Patient can tell me her name, she can tell me where she is. Denies pain currently. No complaint of headache, no chest pain but shortness of breath has a barky harsh cough, no reported nausea or vomiting, no reports of diarrhea or constipation, no urinary symptoms currently. Patient was discharged home with Tessalon Perles and Percocet 4 days ago. Allergies to adhesive tape, codeine and mesalamine. No tobacco, occasional alcohol, no illicit. Primary care is Dr. Webb. Patient lives with her who called for EMS today. [facility] Medical History History of squamous cell carcinoma History of basal cell cancer Foot pain (~2013) Measles (~1958) History of cold sores (~1964) Chicken pox (~1957) Anemia Vertigo (~2007) Human papilloma virus (~2009) History of urinary incontinence (~2013) Fatty liver (~2004) Hemorrhoid GI bleeding (~2004) Colon polyps Skin cancer History of liver disease History of skin cancer Hx of hyperlipidemia OAB (overactive bladder) Thyroid nodule (~2017) Peripheral neuropathy (~2004) Crohn disease (~2004) Psoriatic arthritis (~2003) Benign essential HTN Type 2 diabetes mellitus with insulin therapy (~2012) Surgical History Anesthesia History of bunionectomy Lumbar stenosis History of tonsillectomy and adenoidectomy (~1954) History of knee replacement History of back surgery (~2008) Family History Father Rheumatoid arthritis Cancer Mother Parkinsons disease Skin cancer Grandmother Cancer Diabetes mellitus Brother Kidney stones Diabetes mellitus Skin cancer Grandfather Cancer Grandmother Mental health problem Grandfather Asthma Family/Other History of IBS Social History marital status: number of children: 2 household members: spouse occupational status: employed Smoking Status: Never smoker alcohol intake: current substance use type: does not use caffeine: Yes Type(s) of exercise: none Meds Home Medications and Allergies Home Medications Medication Instructions Recorded Confirmed Type duloxetine 60 mg capsule,delayed 60 mg PO DAILY #90 caps 03/21/22 12/30/22 Rx release (Cymbalta) insulin glargine 100 unit/mL (3 18 unit SUBCUT BID 03/21/22 12/30/22 History mL) subcutaneous pen (Lantus Solostar U-100 Insulin) insulin lispro 100 unit/mL 6 - 10 unit SUBCUT TID 03/21/22 12/30/22 History subcutaneous pen rosuvastatin 10 mg tablet 10 mg PO BEDTIME 03/21/22 12/31/22 History gabapentin 600 mg tablet See Rx Instructions .Route 03/23/22 12/31/22 Rx .COMPLEX #90 tabs cyclobenzaprine 10 mg tablet 10 mg PO BEDTIME #90 tabs 03/27/22 12/30/22 Rx flash glucose sensor (FreeStyle #6 ea 04/04/22 12/30/22 Rx Davi 14 Day Sensor kit) folic acid 1 mg tablet 1 mg PO DAILY 07/10/22 12/30/22 History magnesium oxide 500 mg tablet 500 mg PO BID 07/10/22 12/31/22 History metformin 1,000 mg PO BID 07/10/22 12/31/22 History valacyclovir 500 mg tablet 500 mg PO BID 07/10/22 12/30/22 History famotidine 20 mg tablet (Pepcid) 20 mg PO BID 07/11/22 12/30/22 History solifenacin 10 mg tablet (Vesicare) 10 mg PO DAILY #90 tabs 07/14/22 12/31/22 Rx methotrexate sodium 25 mg/mL 25 mg IM QWEEK 09/26/22 12/31/22 History injection solution risankizumab-rzaa 150 mg/mL 150 mg SUBCUT [id number] 09/26/22 12/31/22 History subcutaneous pen injector (Jovan) benzonatate 100 mg capsule 100 mg PO BID-TID PRN cough #14 12/26/22 12/30/22 Rx caps oxycodone-acetaminophen 5 mg-325 1 tab PO Q6H PRN pain or cough #14 12/26/22 12/31/22 Rx mg tablet tabs losartan 25 mg tablet 25 mg PO BEDTIME 12/31/22 12/31/22 History Allergies Allergy/AdvReac Type Severity Reaction Status Date / Time adhesive tape Allergy Unknown Verified 09/26/22 13:55 codeine Allergy Unknown Verified 09/26/22 13:55 mesalamine [From Asacol] AdvReac Unknown Verified 09/26/22 13:55 Exam Vital Signs (past 8 hours): - 12/31/22 07:56 12/31/22 08:00 12/31/22 12:00 Temperature 97.3 F L 96.4 F L Pulse Rate 73 75 Respiratory Rate 20 20 Blood Pressure 115/46 L 124/91 H Pulse Oximetry 94 94 95 Oxygen Delivery Method Oximask Oxygen Flow Rate 4 3.5 4 Oxygen Delivery Method Oximask Oxygen Flow Rate 4 Narrative Exam Narrative: Gen: alert, coughing Lungs: coarse crackles throughout CV: regular Abd: soft Ext: no edema Neuro: nl affect and speech Objective Labs 12/31/22 04:52 12/31/22 04:52 Labs: Laboratory Results - last 24 hr 12/30/22 12/30/22 12/30/22 19:28 19:40 19:50 WBC 19.0 H RBC 3.84 L Hgb 10.4 L Hct 32.9 L MCV 85.8 MCH 27.2 MCHC 31.7 RDW 18.0 H Plt Count 378 Neut % (Auto) 86.9 H Lymph % (Auto) 5.9 L [place] % (Auto) 6.4 Eos % (Auto) 0.7 L Baso % (Auto) 0.1 Neut # (Auto) 31000 H Lymph # (Auto) 1100 [place] # (Auto) 1200 H Eos # (Auto) 100 Baso # (Auto) 0 Total Counted Seg Neutrophils % Band Neutrophils % Lymphocytes % (Manual) Monocytes % (Manual) Neutrophils # (Manual) RBC Morphology Anisocytosis PT 12.5 INR 1.1 APTT 27 D-Dimer 53457 H ABG pH 7.42 ABG pCO2 36.0 ABG pO2 65 L ABG HCO3 23 ABG Total CO2 24 ABG O2 Saturation 93 L ABG Base Excess -1.0 FiO2 40 Sodium 136 L Potassium 4.2 Chloride 98 Carbon Dioxide 26 BUN 22 H Creatinine 0.78 Estimated GFR > 60 BUN/Creatinine Ratio 28.2 H Glucose 177 H Hemoglobin A1c Lactate 4.0 H Calcium 9.5 Total Bilirubin 0.5 AST 40 H ALT 36 H Alkaline Phosphatase 96 Total Creatine Kinase 89 Troponin I < 0.012 NT-Pro-B Natriuret Pep 63 Total Protein 7.0 Albumin 4.1 Globulin 2.9 Albumin/Globulin Ratio 1.4 Procalcitonin 0.16 Urine Color Urine Appearance Urine pH Ur Specific [place] Urine Protein Urine Glucose (UA) Urine Ketones Urine Occult Blood Urine Nitrate Urine Bilirubin Urine Urobilinogen Ur Leukocyte Esterase Urine RBC Urine WBC Ur Squamous Epith Cells Urine Bacteria Ur Culture Indicated? U Opiates 300ng/mL cut Ur Oxycodone Screen Urine Methadone Screen Ur Barbiturates Screen U Tricyclic Antidepress Ur Phencyclidine Scrn Ur Amphetamines Screen U Methamphetamines Scrn Ur MDMA Scrn (Ecstasy) U Benzodiazepines Scrn Urine Cocaine Screen U Marijuana (THC) Screen Chlamy pneumoniae PCR Not detected Adenovirus (PCR) Not detected B.parapertussis DNA PCR Not detected Coronavirus OC43 (PCR) Not detected Coronavirus HKU1 (PCR) Not detected Coronavirus 229E (PCR) Not detected SARS-CoV-2 (PCR) Detected Coronavirus NL63 (PCR) Not detected Human Metapneumovir PCR Not detected Influenza Type A (PCR) Not detected Influenza Type B (PCR) Not detected M. pneumoniae (PCR) Not detected Parainfluenza 1 (PCR) Not detected Parainfluenza 2 (PCR) Not detected Parainfluenza 3 (PCR) Not detected Parainfluenza 4 (PCR) Not detected RSV (PCR) Not detected Entero/Rhino (PCR) Not detected 12/30/22 12/30/22 12/30/22 20:12 21:39 21:47 WBC RBC Hgb Hct MCV MCH MCHC RDW Plt Count Neut % (Auto) Lymph % (Auto) [place] % (Auto) Eos % (Auto) Baso % (Auto) Neut # (Auto) Lymph # (Auto) [place] # (Auto) Eos # (Auto) Baso # (Auto) Total Counted Seg Neutrophils % Band Neutrophils % Lymphocytes % (Manual) Monocytes % (Manual) Neutrophils # (Manual) RBC Morphology Anisocytosis PT INR APTT D-Dimer ABG pH ABG pCO2 ABG pO2 ABG HCO3 ABG Total CO2 ABG O2 Saturation ABG Base Excess FiO2 Sodium Potassium Chloride Carbon Dioxide BUN Creatinine Estimated GFR BUN/Creatinine Ratio Glucose Hemoglobin A1c Lactate 2.7 H Calcium Total Bilirubin AST ALT Alkaline Phosphatase Total Creatine Kinase Troponin I NT-Pro-B Natriuret Pep Total Protein Albumin Globulin Albumin/Globulin Ratio Procalcitonin Urine Color Yellow Urine Appearance Clear Urine pH 5.0 Ur Specific [place] 1.025 Urine Protein Negative Urine Glucose (UA) Negative Urine Ketones Negative Urine Occult Blood Negative Urine Nitrate Positive H Urine Bilirubin Negative Urine Urobilinogen 0.2 Ur Leukocyte Esterase Trace H Urine RBC 0-1/hpf Urine WBC 10-30/hpf H Ur Squamous Epith Cells 1-5 /hpf Urine Bacteria Many (>30) H Ur Culture Indicated? Specimen cultured U Opiates 300ng/mL cut Negative Ur Oxycodone Screen Positive H Urine Methadone Screen Negative Ur Barbiturates Screen Negative U Tricyclic Antidepress Positive H Ur Phencyclidine Scrn Negative Ur Amphetamines Screen Negative U Methamphetamines Scrn Negative Ur MDMA Scrn (Ecstasy) Negative U Benzodiazepines Scrn Negative Urine Cocaine Screen Negative U Marijuana (THC) Screen Negative Chlamy pneumoniae PCR Adenovirus (PCR) B.parapertussis DNA PCR Coronavirus OC43 (PCR) Coronavirus HKU1 (PCR) Coronavirus 229E (PCR) SARS-CoV-2 (PCR) Coronavirus NL63 (PCR) Human Metapneumovir PCR Influenza Type A (PCR) Influenza Type B (PCR) M. pneumoniae (PCR) Parainfluenza 1 (PCR) Parainfluenza 2 (PCR) Parainfluenza 3 (PCR) Parainfluenza 4 (PCR) RSV (PCR) Entero/Rhino (PCR) 12/31/22 04:52 WBC 29.4 H D RBC 3.49 L Hgb 9.5 L Hct 29.9 L MCV 85.6 MCH 27.2 MCHC 31.8 RDW 17.5 H Plt Count 339 Neut % (Auto) Not Reportable Lymph % (Auto) Not Reportable [place] % (Auto) Not Reportable Eos % (Auto) Not Reportable Baso % (Auto) Not Reportable Neut # (Auto) Lymph # (Auto) Not Reportable [place] # (Auto) Not Reportable Eos # (Auto) Baso # (Auto) Not Reportable Total Counted 100 Seg Neutrophils % 87.0 H Band Neutrophils % 2.0 L Lymphocytes % (Manual) 4.0 L Monocytes % (Manual) 7.0 Neutrophils # (Manual) 54541 H RBC Morphology See below Anisocytosis 1+ H PT INR APTT D-Dimer ABG pH ABG pCO2 ABG pO2 ABG HCO3 ABG Total CO2 ABG O2 Saturation ABG Base Excess FiO2 Sodium 138 Potassium 4.3 Chloride 103 Carbon Dioxide 26 BUN 19 H Creatinine 0.72 Estimated GFR > 60 BUN/Creatinine Ratio 26.4 H Glucose 174 H Hemoglobin A1c 7.1 H Lactate Calcium 9.1 Total Bilirubin AST ALT Alkaline Phosphatase Total Creatine Kinase Troponin I NT-Pro-B Natriuret Pep Total Protein Albumin Globulin Albumin/Globulin Ratio Procalcitonin Urine Color Urine Appearance Urine pH Ur Specific [place] Urine Protein Urine Glucose (UA) Urine Ketones Urine Occult Blood Urine Nitrate Urine Bilirubin Urine Urobilinogen Ur Leukocyte Esterase Urine RBC Urine WBC Ur Squamous Epith Cells Urine Bacteria Ur Culture Indicated? U Opiates 300ng/mL cut Ur Oxycodone Screen Urine Methadone Screen Ur Barbiturates Screen U Tricyclic Antidepress Ur Phencyclidine Scrn Ur Amphetamines Screen U Methamphetamines Scrn Ur MDMA Scrn (Ecstasy) U Benzodiazepines Scrn Urine Cocaine Screen U Marijuana (THC) Screen Chlamy pneumoniae PCR Adenovirus (PCR) B.parapertussis DNA PCR Coronavirus OC43 (PCR) Coronavirus HKU1 (PCR) Coronavirus 229E (PCR) SARS-CoV-2 (PCR) Coronavirus NL63 (PCR) Human Metapneumovir PCR Influenza Type A (PCR) Influenza Type B (PCR) M. pneumoniae (PCR) Parainfluenza 1 (PCR) Parainfluenza 2 (PCR) Parainfluenza 3 (PCR) Parainfluenza 4 (PCR) RSV (PCR) Entero/Rhino (PCR) Assessment & Plan Assessment & Plan narrative: Acute hypoxic respiratory failure -sat 86% RA on admit -due COVID +/- bacterial pnx -cont O2 nasal cannula, currently 4 L, keep sat > 90 -treat underlying pathology -resp status stable COVID -cont dexamethasone and added Remdesivir -tessalon and hydrocodone prn cough Pneumonia -cont Rocephin and doxycycline Impaired swallowing -likely cough and weakness -repeat nurse bedside swallow eval today, if nl start ADA diet, if abnl then ST eval Recent E.coli UTI -treated with abx, above Diabetes insulin requiring -cont Lantus and S/S -pt has CGM and may self-admin insulin with RN supervision Crohns/psoriatic arthritis -hold methotrexate Hypertension -hold losartan DVT prevention: enoxaprin Quality VTE Deep Vein Thrombosis/Pulmonary Embolism Present on Admission: No
[2022-12-31 14:48] LABS: Hematocrit 29.9 % (36-46); Hemoglobin 9.6 g/dL (12.0-16.0); Mean Corpuscular Hemoglobin 27.5 PG (26-34); Mean Corpuscular Volume 85.8 fL (80-100); Platelet Count 338 X10^3/uL (150-400); Red Blood Cell Count 3.49 X10^6/uL (4.0-5.2); Red Cell Distribution Width 17.4 % (11.6-14.8)
[2022-12-31 14:54] LABS: Add Manual Diff / Slide Review YES; White Blood Cell Count 31.7 X10^3/uL (4.5-11.0)
[2022-12-31] MEDS: REMDESIVIR 200 MG in SODIUM CHLORIDE 0.9% 250 ML 250 MG IV (15:01)
[2022-12-31 15:12] LABS: Anisocytosis 1+; Neutrophils Absolute Manual 29481 /uL (3000-5900); Total Cells Counted 100
--- NOTE | 2022-12-31 17:28 | CM.DPNOTE ---
DCP Note FILM COATER reviewed EMR. Unable to meet with patient due to triaging needs. Per provider, likely here a few days. Per provider, had a high fever this am. Per H&P, lives at home with in [place]. Comprehensive d/c assessment to follow when able. CM team will continue to follow closely. ANGEL Olsen
--- NOTE | 2022-12-31 18:38 | PC.NURSE ---
pt alert and oriented this shift on 02 3l oximask sats 95%-rt tx when needed-rhonchi and rales constant cough noted orders rc'd from md heredia-sánchez work very well for cough, swallow eval done and pt passed with out difficulty. now on soft diet. pt has dexacom left arm and report to staff BS [id number]. pt iso for covid pneumonia afibrile tele sr now dc'd
[2022-12-31] MEDS: FAMOTIDINE 20 MG TABLET PO (21:05)
[2022-12-31] MEDS: ATORVASTATIN 20 MG TABLET PO (21:05)
[2022-12-31] MEDS: CYCLOBENZAPRINE 10 MG TABLET PO (21:05)
[2022-12-31] MEDS: DOXYCYCLINE HYCLATE 100 MG TABLET PO (21:05)
[2022-12-31] MEDS: cefTRIAXone 1,000 MG in SODIUM CHLORIDE 0.9% 100 ML 200 MG IV (21:06)
[2022-12-31] MEDS: SENNOSIDES 8.6 MG TABLET 17.2 MG PO (21:10)
[2022-12-31] MEDS: INSULIN GLARGINE 100 UNIT/ML 3ML PEN 18 UNIT SUBCUT (21:52)
[2022-12-31] MEDS: GABAPENTIN 600 MG TABLET 1800 MG PO (23:32)
[2023-01-01] VITALS (14 sets, daily range): BP systolic 128–156; BP diastolic 53–68; PULSE 65–93; RESP 16–22; TEMP 36.6–37.1; O2SAT 91–96
[2023-01-01] MEDS: BENZONATATE 100 MG CAPSULE PO ×2 (03:50→12:16)
[2023-01-01] MEDS: ALBUTEROL 2.5 MG/3 ML NEB (ADULT) INH (04:03)
[2023-01-01 06:12] LABS: Alanine Aminotransferase 27 IU/L (<35); Albumin 3.3 g/dL (3.5-5.0); Albumin Globulin Ratio 1.1 (1.0-2.8); Alkaline Phosphatase 80 U/L (38-126); Aspartate Aminotransferase 27 IU/L (14-36); Bilirubin Total 0.3 mg/dL (0.2-1.3); Blood Urea Nitrogen 17 mg/dL (7-17); Calcium 9.4 mg/dL (8.4-10.2); Carbon Dioxide 24 mmol/L (22-32); Chloride 108 mmol/L (98-107); Estimated Glomerular Filt Rate > 60 mL/min (>60); Globulin 2.9 g/dL (1.7-4.1); Glucose 158 mg/dL (80-110); HEMOLYSIS < 15 (0-50); Potassium 3.9 mmol/L (3.4-5.1); Sodium 141 mmol/L (137-145); Total Protein 6.2 g/dL (6.3-8.2)
[2023-01-01] MEDS: BENZOCAINE/MENTHOL 1 LOZ PKT 1 EACH PO (06:30)
[2023-01-01 07:13] LABS: Hematocrit 28.7 % (36-46); Hemoglobin 9.1 g/dL (12.0-16.0); Mean Corpuscular HGB Conc 31.8 % (30-36); Mean Corpuscular Hemoglobin 27.2 PG (26-34); Mean Corpuscular Volume 85.4 fL (80-100); Platelet Count 361 X10^3/uL (150-400); Red Blood Cell Count 3.36 X10^6/uL (4.0-5.2); Red Cell Distribution Width 17.9 % (11.6-14.8); White Blood Cell Count 25.1 X10^3/uL (4.5-11.0)
[2023-01-01 07:17] LABS: Add Manual Diff / Slide Review YES
[2023-01-01 07:52] LABS: Anisocytosis 1+; Neutrophils Absolute Manual 22339 /uL (3000-5900); Total Cells Counted 100
[2023-01-01] MEDS: DULOXETINE 30 MG CAPSULE 60 MG PO (08:39)
[2023-01-01] MEDS: FAMOTIDINE 20 MG TABLET PO ×2 (08:39→20:55)
[2023-01-01] MEDS: FOLIC ACID 1 MG TABLET PO (08:39)
[2023-01-01] MEDS: DOXYCYCLINE HYCLATE 100 MG TABLET PO ×2 (08:39→20:55)
[2023-01-01] MEDS: OXYBUTYNIN 5 MG ER TAB 10 MG PO (08:39)
[2023-01-01] MEDS: ENOXAPARIN 40 MG/0.4 ML SYRINGE SUBCUT (08:39)
[2023-01-01] MEDS: INSULIN GLARGINE 100 UNIT/ML 3ML PEN 18 UNIT SUBCUT ×2 (08:40→21:00)
[2023-01-01] MEDS: INSULIN LISPRO 100 UNIT/ML 3ML VIAL SUBCUT ×3 (08:41→17:19)
[2023-01-01] MEDS: DEXAMETHASONE 10 MG/ML VIAL 6 MG IV (08:43)
[2023-01-01] MEDS: ALBUTEROL/IPRATROPIUM 3 ML AMPUL INH ×2 (10:00→19:17)
[2023-01-01] MEDS: REMDESIVIR 100 MG in SODIUM CHLORIDE 0.9% 250 ML 250 MG IV (10:42)
--- NOTE | 2023-01-01 11:50 | CM.DANOTE ---
Brief DCP Assessment Note: Patient is a 72yo F here following COVID and respiratory failure. RETAIL CLIENT SOLUTIONS CONSULTANT reviewed EMR. Per provider, patient remains on 4ltrs of O2 at this time. Patient will likely be here for a few more days. 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 Patient lives indep with spouse. Patient had a rough night overnight coughing and is tired, patient requested to not be disturbed if possible to try and sleep. RN anticipates no additional d/c needs from CM team at this time. Plan: home with family when medically stable. No needs anticipated at this time. CM team will continue to follow closely. ANGEL Olsen Discharge Planning/Care Management CM Discharge Assessment Start: 01/01/23 11:36 Freq: Status: Active Protocol: Document 01/01/23 11:36 (Rec: 01/01/23 11:50 [id number]) Discharge Planning Assessment Assigned Route Delivery Manager ANGEL Krishna DPOA/Assigned Designee Name Terence Shankar (spouse) Contact Information [phone] Advance Directives? Yes Advance Directives on File No History Provided By Medical Record Prior Living Arrangements House Household Members spouse Type of transporation used prior to Drives own vehicle admit Independent with ADL's Yes Is patient alert and oriented? Yes Barriers to Discharge No Discharge Plan Home Transportation Arrangement likely family in [place] Whiteboard Updated in Patient Room with No name and ext. # of Route Delivery Manager Comment not updated due to patient COVID pos Review Status In Process Next Review Type Continued Stay Review
[2023-01-01] MEDS: MAG HYDROX/ALUM/SIMETH 30 ML UDC PO (12:08)
[2023-01-01] MEDS: GABAPENTIN 600 MG TABLET PO (12:16)
--- NOTE | 2023-01-01 14:17 | ST.IPCSEOM ---
Visit Care Team Role Provider Type Jon Simeon DO Primary Care Provider Physician Specialty: Family Practice Address: [address] [place] [address], [address], [place], [address] Email: [email or web address] Anitha Floyd DO Emergency Provider Physician Referring Provider Specialty: Emergency Medicine Address: [address] [place] [address], [address] Email: [email or web address] Nathan Amor MD Admit Provider Physician Attending Provider Specialty: Internal Medicine Address: [address] [place] [address], [address] Fax: Email: [email or web address] Diagnoses Sepsis, unspecified organism (12/30/22) Unspecified Escherichia coli [E. coli] as the cause of diseases classified elsewhere (12/30/22) Type 2 diabetes mellitus without complications (12/30/22) Pneumonia, unspecified organism (12/30/22) Acute respiratory failure with hypoxia (12/30/22) Urinary tract infection, site not specified (12/30/22) COVID-19 (12/30/22) alf (current) use of insulin (12/30/22) Past Medical History (Last Reviewed 12/30/22 @ 19:45 by Anitha Floyd DO) Anemia (Medical) Benign essential HTN (Medical) Chicken pox (Medical ~1957) Colon polyps (Medical) Crohn disease (Medical ~2004) Fatty liver (Medical ~2004) Foot pain (Medical ~2013) GI bleeding (Medical ~2004) Hemorrhoid (Medical) History of basal cell cancer (Medical) History of cold sores (Medical ~1964) History of liver disease (Medical) History of skin cancer (Medical) History of squamous cell carcinoma (Medical) History of urinary incontinence (Medical ~2013) Human papilloma virus (Medical ~2009) 1 pap smear Hx of hyperlipidemia (Medical) Measles (Medical ~1958) OAB (overactive bladder) (Medical) Peripheral neuropathy (Medical ~2004) Psoriatic arthritis (Medical ~2003) Skin cancer (Medical) Thyroid nodule (Medical ~2017) Type 2 diabetes mellitus with insulin therapy (Medical ~2012) Vertigo (Medical ~2007) Off and on Speech-Language Pathology 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 Pt denies any ongoing swallowing concerns following initial incident in ER. Pt had just eaten lunch with no noted difficulty per pt or nursing. Reported by Patient/Caregiver Other Symptoms Coughing Current Diet Regular (IDDSI 7) The IDDSI Framework Protocol: IDDSI.1 Objective Assessment Mental Status Alert,Cooperative Oral Integrity WFL Dentition Within normal limits Lip Function Within normal limits Observation of Lips at Rest Symmetrical Pucker Within normal limits Lip Retraction Within normal limits Tongue Function Within normal limits Food and Liquid Trials Position During Assessment Upright (90 degrees) Liquids Trialed Thin (IDDSI 0) Solid Trials Regular (IDDSI 7) Administration Type Cup single sip,Cup consecutive sips Oral Impairment Within normal limits Oral Phase Comments Facial symmetry appreciated. Dentition/dentures in fair condition, Within normal limits ROM and coordination of lips and tongue. Palatal elevation observed. Oral hygiene reported as good. Respiratory support reduced. Voice WNL Pharyngeal Phase Comments no overt s/s of asp/pen observed or noted by pt or nursing today [place] Swallow Protocol Yes Results Completed multiple swallow challenge with no overt s/s of asp/pen The IDDSI Framework Protocol: IDDSI.1 Findings Swallowing Function Within normal limits Prognosis Good Comment No overt s/s of asp/pen with any intake, earlier issues appear resolved. While silent aspiration cannot be ruled out without an instrumental, concerns are minimal for silent aspiration with this patient. No further ST needed at this time. Impact on Safety and Functioning No limitations Recommendations Instrumental Assessment No Swallowing Treatment No Recommended Solids Regular (IDDSI 7) Recommended Liquids Thin (IDDSI 0) Safety Precautions/Swallowing Remain upright (90 degrees) Recommendations during all oral intake Medication Recommendations As Tolerated Discharge Recommendations Home Education Patient/Caregiver Education Patient expressed understanding of evaluation
[2023-01-01 14:33] LABS: Add Manual Diff / Slide Review NO; Basophils Absolute Auto 0 /uL (0-100); Eosinophils Absolute Auto 0 /uL (0-450); Hematocrit 28.5 % (36-46); Hemoglobin 9.1 g/dL (12.0-16.0); Lymphocytes Absolute Auto 900 /uL (1100-4500); Lymphocytes Percent Auto 3.3 % (25-40); Mean Corpuscular HGB Conc 31.8 % (30-36); Mean Corpuscular Hemoglobin 27.1 PG (26-34); Monocytes Absolute Auto 1100 /uL (0-900); Neutrophils Absolute Auto 24700 /uL (1500-7000); Neutrophils Percent Auto 92.7 % (50-75); Platelet Count 355 X10^3/uL (150-400); Red Blood Cell Count 3.36 X10^6/uL (4.0-5.2); Red Cell Distribution Width 17.9 % (11.6-14.8); White Blood Cell Count 26.7 X10^3/uL (4.5-11.0)
[2023-01-01] MEDS: SODIUM CHLORIDE 0.9% 1,000 ML 100 ML IV (18:25)
--- NOTE | 2023-01-01 20:01 | P.PN_ITS ---
Subjective Subjective Date Patient Seen: 01/01/23 Time Patient Seen: 08:00 Interval history: She is coughing quite a lot. She is still feeling short of breath. Exam Vital Signs (past 8 hours): - 01/01/23 13:00 01/01/23 13:20 01/01/23 17:00 Temperature 98.7 F Pulse Rate 89 Respiratory Rate 20 Blood Pressure 128/60 Pulse Oximetry 94 92 93 Oxygen Delivery Method Oximask Oximask Oxygen Flow Rate 2 0 2 01/01/23 17:19 Temperature 98.5 F Pulse Rate 77 Respiratory Rate 20 Blood Pressure 156/68 H Pulse Oximetry 93 Oxygen Delivery Method Oxygen Flow Rate 2 Oxygen Delivery Method Oximask Oxygen Flow Rate 2 Narrative Exam Narrative: GEN: no acute distress CV: regular rate and rhythm PULM: coarse breath sounds ABD: soft, nontender, nondistended EXT: warm and well perfused with no edema NEURO: awake, alert, oriented Objective Labs 01/01/23 13:55 01/01/23 05:08 Labs: Laboratory Results - last 24 hr 01/01/23 01/01/23 05:08 13:55 WBC 25.1 H 26.7 H RBC 3.36 L 3.36 L Hgb 9.1 L 9.1 L Hct 28.7 L 28.5 L MCV 85.4 85.0 MCH 27.2 27.1 MCHC 31.8 31.8 RDW 17.9 H 17.9 H Plt Count 361 355 Neut % (Auto) Not Reportable 92.7 H Lymph % (Auto) Not Reportable 3.3 L [place] % (Auto) Not Reportable 4.0 Eos % (Auto) Not Reportable 0.0 L Baso % (Auto) Not Reportable 0.0 Neut # (Auto) 33496 H Lymph # (Auto) Not Reportable 900 L [place] # (Auto) Not Reportable 1100 H Eos # (Auto) 0 Baso # (Auto) Not Reportable 0 Total Counted 100 Seg Neutrophils % 89.0 H Lymphocytes % (Manual) 8.0 L Monocytes % (Manual) 3.0 Neutrophils # (Manual) 62134 H RBC Morphology See below Anisocytosis 1+ H Sodium 141 Potassium 3.9 Chloride 108 H Carbon Dioxide 24 BUN 17 Creatinine 0.63 Estimated GFR > 60 BUN/Creatinine Ratio 27.0 H Glucose 158 H Calcium 9.4 Total Bilirubin 0.3 AST 27 ALT 27 Alkaline Phosphatase 80 Total Protein 6.2 L Albumin 3.3 L Globulin 2.9 Albumin/Globulin Ratio 1.1 [facility] History History of squamous cell carcinoma History of basal cell cancer Foot pain (~2013) Measles (~1958) History of cold sores (~1964) Chicken pox (~1957) Anemia Vertigo (~2007) Human papilloma virus (~2009) History of urinary incontinence (~2013) Fatty liver (~2004) Hemorrhoid GI bleeding (~2004) Colon polyps Skin cancer History of liver disease History of skin cancer Hx of hyperlipidemia OAB (overactive bladder) Thyroid nodule (~2017) Peripheral neuropathy (~2004) Crohn disease (~2004) Psoriatic arthritis (~2003) Benign essential HTN Type 2 diabetes mellitus with insulin therapy (~2012) Surgical History Anesthesia History of bunionectomy Lumbar stenosis History of tonsillectomy and adenoidectomy (~1954) History of knee replacement History of back surgery (~2008) Family History Father Rheumatoid arthritis Cancer Mother Parkinsons disease Skin cancer Grandmother Cancer Diabetes mellitus Brother Kidney stones Diabetes mellitus Skin cancer Grandfather Cancer Grandmother Mental health problem Grandfather Asthma Family/Other History of IBS Social History marital status: number of children: 2 household members: spouse occupational status: employed Smoking Status: Never smoker alcohol intake: current substance use type: does not use caffeine: Yes Type(s) of exercise: none Assessment & Plan Assessment & Plan narrative: 1. Acute hypoxic respiratory failure -sat 86% RA on admit -due COVID +/- bacterial pnx -cont O2 nasal cannula, currently 4 L, keep sat > 90 -treat underlying pathology -resp status stable 2. COVID -cont dexamethasone and added Remdesivir -tessalon and hydrocodone prn cough 3. Pneumonia -cont Rocephin and doxycycline 4. Impaired swallowing -likely cough and weakness -repeat nurse bedside swallow eval today, if nl start ADA diet, if abnl then ST eval 5. Recent E.coli UTI -treated with abx, above 6. Diabetes insulin requiring -cont Lantus and S/S -pt has CGM and may self-admin insulin with RN supervision 7. Crohns/psoriatic arthritis -hold methotrexate 8. Hypertension -hold losartan Quality VTE Deep Vein Thrombosis/Pulmonary Embolism Present on Admission: No
[2023-01-01] MEDS: CYCLOBENZAPRINE 10 MG TABLET PO (20:54)
[2023-01-01] MEDS: ATORVASTATIN 20 MG TABLET PO (20:55)
[2023-01-01] MEDS: SENNOSIDES 8.6 MG TABLET 17.2 MG PO (20:55)
[2023-01-01] MEDS: guaiFENesin ER 600 MG TAB PO (20:55)
[2023-01-01] MEDS: valACYclovir 500 MG TABLET PO (20:56)
[2023-01-01] MEDS: SODIUM CHLORIDE 0.9% FLUSH 10 ML IV (21:00)
[2023-01-01] MEDS: cefTRIAXone 1,000 MG in SODIUM CHLORIDE 0.9% 100 ML 200 MG IV (21:01)
[2023-01-01 23:31] LABS: MRSA (Nasal) PCR Not Detected (Not Detect)
[2023-01-01] MEDS: GABAPENTIN 600 MG TABLET 1800 MG PO (23:34)
[2023-01-02] VITALS (15 sets, daily range): BP systolic 121–165; BP diastolic 57–76; PULSE 67–89; RESP 16–22; TEMP 36.3–37.1; O2SAT 92–98
[2023-01-02] MEDS: SODIUM CHLORIDE 0.9% 1,000 ML 100 ML IV ×2 (04:10→20:02)
[2023-01-02 06:42] LABS: Alanine Aminotransferase 27 IU/L (<35); Albumin 3.2 g/dL (3.5-5.0); Albumin Globulin Ratio 1.2 (1.0-2.8); Alkaline Phosphatase 73 U/L (38-126); Aspartate Aminotransferase 26 IU/L (14-36); BUN Creatinine Ratio 29.9 (6-22); Bilirubin Total 0.4 mg/dL (0.2-1.3); Blood Urea Nitrogen 20 mg/dL (7-17); Calcium 9.4 mg/dL (8.4-10.2); Carbon Dioxide 23 mmol/L (22-32); Chloride 107 mmol/L (98-107); Estimated Glomerular Filt Rate > 60 mL/min (>60); Globulin 2.7 g/dL (1.7-4.1); Glucose 120 mg/dL (80-110); HEMOLYSIS < 15 (0-50); Potassium 4.2 mmol/L (3.4-5.1); Sodium 140 mmol/L (137-145); Total Protein 5.9 g/dL (6.3-8.2)
[2023-01-02] MEDS: ALBUTEROL/IPRATROPIUM 3 ML AMPUL INH ×3 (08:58→17:49)
[2023-01-02] MEDS: FOLIC ACID 1 MG TABLET PO (09:26)
[2023-01-02] MEDS: DULOXETINE 30 MG CAPSULE 60 MG PO (09:26)
[2023-01-02] MEDS: guaiFENesin ER 600 MG TAB PO ×2 (09:26→20:02)
[2023-01-02] MEDS: DOXYCYCLINE HYCLATE 100 MG TABLET PO ×2 (09:26→20:02)
[2023-01-02] MEDS: FAMOTIDINE 20 MG TABLET PO ×2 (09:28→20:03)
[2023-01-02] MEDS: valACYclovir 500 MG TABLET PO ×2 (09:28→20:03)
[2023-01-02] MEDS: OXYBUTYNIN 5 MG ER TAB 10 MG PO (09:28)
[2023-01-02] MEDS: DEXAMETHASONE 10 MG/ML VIAL 6 MG IV (09:28)
[2023-01-02] MEDS: INSULIN GLARGINE 100 UNIT/ML 3ML PEN 18 UNIT SUBCUT ×2 (09:29→21:56)
[2023-01-02] MEDS: ENOXAPARIN 40 MG/0.4 ML SYRINGE SUBCUT (09:29)
[2023-01-02] MEDS: SODIUM CHLORIDE 0.9% FLUSH 10 ML IV ×2 (09:30→21:48)
[2023-01-02] MEDS: REMDESIVIR 100 MG in SODIUM CHLORIDE 0.9% 250 ML 250 MG IV (09:30)
[2023-01-02] MEDS: INSULIN LISPRO 100 UNIT/ML 3ML VIAL SUBCUT ×3 (12:09→21:55)
[2023-01-02] MEDS: GABAPENTIN 600 MG TABLET PO (12:11)
--- NOTE | 2023-01-02 14:12 | P.PN_ITS ---
Subjective Subjective Date Patient Seen: 01/02/23 Time Patient Seen: 08:00 Interval history: Her coughing has improved. She feels her strength has improved. Her oxygen requirements are less; however when oxygen was taken off she dropped to the 80s and she was short of breath with ambulation. Exam Vital Signs (past 8 hours): - 01/02/23 08:13 01/02/23 08:20 01/02/23 08:58 Temperature 98.7 F Pulse Rate 74 86 Respiratory Rate 18 22 Blood Pressure 121/76 Pulse Oximetry 96 98 Oxygen Delivery Method Oximask Nasal Cannula Oxygen Flow Rate 2 2 Fraction of Inspired Oxygen 28 01/02/23 09:00 01/02/23 13:00 01/02/23 13:33 Temperature Pulse Rate 86 Respiratory Rate 20 Blood Pressure Pulse Oximetry 92 94 92 Oxygen Delivery Method Room Air Oximask Room Air Oxygen Flow Rate 0 2 0 Fraction of Inspired Oxygen 21 Fraction of Inspired Oxygen 21 SaO2/FiO2 Ratio 438 Oxygen Delivery Method Room Air Oxygen Flow Rate 0 Narrative Exam Narrative: GEN: no acute distress CV: regular rate and rhythm PULM: coarse breath sounds ABD: soft, nontender, nondistended EXT: warm and well perfused with no edema NEURO: awake, alert, oriented Objective Labs 01/01/23 13:55 01/02/23 04:52 Labs: Laboratory Results - last 24 hr 01/01/23 01/01/23 01/02/23 13:55 21:00 04:52 WBC 26.7 H RBC 3.36 L Hgb 9.1 L Hct 28.5 L MCV 85.0 MCH 27.1 MCHC 31.8 RDW 17.9 H Plt Count 355 Neut % (Auto) 92.7 H Lymph % (Auto) 3.3 L [place] % (Auto) 4.0 Eos % (Auto) 0.0 L Baso % (Auto) 0.0 Neut # (Auto) 64944 H Lymph # (Auto) 900 L [place] # (Auto) 1100 H Eos # (Auto) 0 Baso # (Auto) 0 Sodium 140 Potassium 4.2 Chloride 107 Carbon Dioxide 23 BUN 20 H Creatinine 0.67 Estimated GFR > 60 BUN/Creatinine Ratio 29.9 H Glucose 120 H Calcium 9.4 Total Bilirubin 0.4 AST 26 ALT 27 Alkaline Phosphatase 73 Total Protein 5.9 L Albumin 3.2 L Globulin 2.7 Albumin/Globulin Ratio 1.2 Nasal Screen MRSA (PCR) Not detected [facility] Medical History History of squamous cell carcinoma History of basal cell cancer Foot pain (~2013) Measles (~1958) History of cold sores (~1964) Chicken pox (~1957) Anemia Vertigo (~2007) Human papilloma virus (~2009) History of urinary incontinence (~2013) Fatty liver (~2004) Hemorrhoid GI bleeding (~2004) Colon polyps Skin cancer History of liver disease History of skin cancer Hx of hyperlipidemia OAB (overactive bladder) Thyroid nodule (~2017) Peripheral neuropathy (~2004) Crohn disease (~2004) Psoriatic arthritis (~2003) Benign essential HTN Type 2 diabetes mellitus with insulin therapy (~2012) Surgical History Anesthesia History of bunionectomy Lumbar stenosis History of tonsillectomy and adenoidectomy (~1954) History of knee replacement History of back surgery (~2008) Family History Father Rheumatoid arthritis Cancer Mother Parkinsons disease Skin cancer Grandmother Cancer Diabetes mellitus Brother Kidney stones Diabetes mellitus Skin cancer Grandfather Cancer Grandmother Mental health problem Grandfather Asthma Family/Other History of IBS Social History marital status: number of children: 2 household members: spouse occupational status: employed Smoking Status: Never smoker alcohol intake: current substance use type: does not use caffeine: Yes Type(s) of exercise: none Assessment & Plan Assessment & Plan narrative: 1. Acute hypoxic respiratory failure -sat 86% RA on admit -due COVID +/- bacterial pnx -cont O2 nasal cannula, currently 2 L, keep sat > 90 -treat underlying pathology -wean oxygen as able 2. COVID -cont dexamethasone and added Remdesivir -tessalon and hydrocodone prn cough 3. Pneumonia -cont Rocephin and doxycycline 4. Impaired swallowing -likely cough and weakness -repeat nurse bedside swallow eval today, if nl start ADA diet, if abnl then ST eval 5. Recent E.coli UTI -treated with abx, above 6. Diabetes insulin requiring -cont Lantus and S/S -pt has CGM and may self-admin insulin with RN supervision 7. Crohns/psoriatic arthritis -hold methotrexate 8. Hypertension -hold losartan Quality VTE Deep Vein Thrombosis/Pulmonary Embolism Present on Admission: No
[2023-01-02 14:31] LABS: Hematocrit 31.5 % (36-46); Hemoglobin 10.2 g/dL (12.0-16.0); Mean Corpuscular HGB Conc 32.3 % (30-36); Mean Corpuscular Hemoglobin 27.2 PG (26-34); Mean Corpuscular Volume 84.3 fL (80-100); Platelet Count 368 X10^3/uL (150-400); Red Blood Cell Count 3.74 X10^6/uL (4.0-5.2); Red Cell Distribution Width 18.2 % (11.6-14.8); White Blood Cell Count 24.4 X10^3/uL (4.5-11.0)
[2023-01-02 14:32] LABS: Add Manual Diff / Slide Review YES
[2023-01-02 14:44] LABS: Neutrophils Absolute Manual 22448 /uL (3000-5900); Total Cells Counted 100
[2023-01-02 14:45] LABS: Anisocytosis 1+
[2023-01-02] MEDS: SENNOSIDES 8.6 MG TABLET 17.2 MG PO (20:02)
[2023-01-02] MEDS: CYCLOBENZAPRINE 10 MG TABLET PO (20:02)
[2023-01-02] MEDS: ATORVASTATIN 20 MG TABLET PO (20:03)
[2023-01-02] MEDS: cefTRIAXone 1,000 MG in SODIUM CHLORIDE 0.9% 100 ML 200 MG IV (20:03)
[2023-01-03] VITALS (8 sets, daily range): BP systolic 145–152; BP diastolic 20–66; PULSE 59–72; RESP 18; TEMP 36.1–36.3; O2SAT 92–96
[2023-01-03] MEDS: GABAPENTIN 600 MG TABLET 1800 MG PO (00:15)
[2023-01-03 06:31] LABS: Alanine Aminotransferase 37 IU/L (<35); Albumin 3.1 g/dL (3.5-5.0); Albumin Globulin Ratio 1.1 (1.0-2.8); Alkaline Phosphatase 70 U/L (38-126); Aspartate Aminotransferase 32 IU/L (14-36); BUN Creatinine Ratio 27.3 (6-22); Bilirubin Total 0.5 mg/dL (0.2-1.3); Blood Urea Nitrogen 18 mg/dL (7-17); Calcium 9.2 mg/dL (8.4-10.2); Carbon Dioxide 26 mmol/L (22-32); Chloride 106 mmol/L (98-107); Estimated Glomerular Filt Rate > 60 mL/min (>60); Globulin 2.8 g/dL (1.7-4.1); Glucose 116 mg/dL (80-110); HEMOLYSIS < 15 (0-50); Potassium 4.1 mmol/L (3.4-5.1); Sodium 138 mmol/L (137-145); Total Protein 5.9 g/dL (6.3-8.2)
[2023-01-03] MEDS: SODIUM CHLORIDE 0.9% 1,000 ML 100 ML IV (06:45)
[2023-01-03] MEDS: ALBUTEROL/IPRATROPIUM 3 ML AMPUL INH (08:45)
[2023-01-03] MEDS: ENOXAPARIN 40 MG/0.4 ML SYRINGE SUBCUT (08:53)
[2023-01-03] MEDS: DEXAMETHASONE 10 MG/ML VIAL 6 MG IV (08:54)
[2023-01-03] MEDS: REMDESIVIR 100 MG in SODIUM CHLORIDE 0.9% 250 ML 250 MG IV (08:54)
[2023-01-03] MEDS: FAMOTIDINE 20 MG TABLET PO (08:55)
[2023-01-03] MEDS: valACYclovir 500 MG TABLET PO (08:55)
[2023-01-03] MEDS: DOXYCYCLINE HYCLATE 100 MG TABLET PO (08:55)
[2023-01-03] MEDS: OXYBUTYNIN 5 MG ER TAB 10 MG PO (08:55)
[2023-01-03] MEDS: guaiFENesin ER 600 MG TAB PO (08:55)
[2023-01-03] MEDS: DULOXETINE 30 MG CAPSULE 60 MG PO (08:55)
[2023-01-03] MEDS: FOLIC ACID 1 MG TABLET PO (08:55)
[2023-01-03] MEDS: INSULIN GLARGINE 100 UNIT/ML 3ML PEN 18 UNIT SUBCUT (08:56)
[2023-01-03] MEDS: SODIUM CHLORIDE 0.9% FLUSH 10 ML IV (09:13)
[2023-01-03] MEDS: INSULIN LISPRO 100 UNIT/ML 3ML VIAL SUBCUT (12:11)
[2023-01-03] MEDS: GABAPENTIN 600 MG TABLET PO (12:12)
--- NOTE | 2023-01-03 12:14 | CM.DPC ---
DCP Cont. Reviewed EMR and team rounds for status updates. Pt will d/c today after home O2 has been set-up for home. Spouse to transport once ready. No further DCP needs indicated at this time.
--- NOTE | 2023-01-03 18:01 | PM.DS.1 ---
History of Present Illness History of Present Illness Date Patient Seen: 12/31/22 Time Patient Seen: 14:06 Chief complaint: resp distress/ fever Narrative: Per admitting physician: 72-year-old female with history of psoriatic arthritis, Crohn's disease on methotrexate, hypertension, diabetes, peripheral neuropathy and depression was seen here on 12/26/2022 for cough. Patient was noted to have a recent COVID infection tested negative reportedly earlier in the week. Patient has had fevers, cough, shortness of breath, reportedly became confused fairly abruptly earlier today. She is found to be hypoxic with EMS is 86% room air here. Patient can tell me her name, she can tell me where she is. Denies pain currently. No complaint of headache, no chest pain but shortness of breath has a barky harsh cough, no reported nausea or vomiting, no reports of diarrhea or constipation, no urinary symptoms currently. Patient was discharged home with Tessalon Perles and Percocet 4 days ago. Allergies to adhesive tape, codeine and mesalamine. No tobacco, occasional alcohol, no illicit. Primary care is Dr. Webb. Patient lives with her who called for EMS today. Discharge Providers Provider Date of admission: 12/30/22 22:38 Discharge Date: 01/03/23 Primary care physician: Jon Simeon DO Consults: 12/31/22 00:33 Consult to Speech Therapy Evaluate & Treat Comment: Physician Instructions: Evaluate and treat 12/31/22 00:48 Consult to Speech Therapy Evaluate & Treat Comment: Physician Instructions: Evaluate and treat Discharge provider: Rashaad Carrizales MD Summary Hospital Course Discharge Diagnosis: 1. Acute hypoxemic respiratory failure secondary to COVID and possible bacterial pneumonia 2. Type 2 Diabetes on insulin 3. Crohns, psoriatic arthritis 4. Hypertension 5. UTI Hospital Course: Ms. Shankar was admitted to the hospital with respiratory failure requiring oxygen. She was COVID positive and was treated with steroids and remdesivir. She was also treated with antibiotics as she is immunosuppressed and concern for possible bacterial infection. She improved with treatment. On day of discharge she felt very well, she was off oxygen at rest. But she did required 1L oxygen with amulation to maintain sat >90%. She felt well enough to go home and was discharged with oxygen. She also had a UTI with pansensitive E. coli which was treated in the hospital. She was given three more days of antibiotics to finish a course for pneumonia. She should follow up with her PCP within 1-2 weeks. Exam Vital Signs (past 8 hours): - 01/03/23 11:00 01/03/23 13:00 Pulse Oximetry 93 93 Oxygen Delivery Method Room Air Oxygen Flow Rate 0 0 Fraction of Inspired Oxygen 21 SaO2/FiO2 Ratio 438 Oxygen Delivery Method Room Air Oxygen Flow Rate 0 Narrative Exam Narrative: GEN: no acute distress CV: regular rate and rhythm PULM: coarse breath sounds ABD: soft, nontender, nondistended EXT: warm and well perfused with no edema NEURO: awake, alert, oriented Objective Labs 01/02/23 14:06 01/03/23 05:46 Labs: Laboratory Results - last 24 hr 01/03/23 05:46 Sodium 138 Potassium 4.1 Chloride 106 Carbon Dioxide 26 BUN 18 H Creatinine 0.66 Estimated GFR > 60 BUN/Creatinine Ratio 27.3 H Glucose 116 H Calcium 9.2 Total Bilirubin 0.5 AST 32 ALT 37 H Alkaline Phosphatase 70 Total Protein 5.9 L Albumin 3.1 L Globulin 2.8 Albumin/Globulin Ratio 1.1 PFSH Medical History History of squamous cell carcinoma History of basal cell cancer Foot pain (~2013) Measles (~1958) History of cold sores (~1964) Chicken pox (~1957) Anemia Vertigo (~2007) Human papilloma virus (~2009) History of urinary incontinence (~2013) Fatty liver (~2004) Hemorrhoid GI bleeding (~2004) Colon polyps Skin cancer History of liver disease History of skin cancer Hx of hyperlipidemia OAB (overactive bladder) Thyroid nodule (~2017) Peripheral neuropathy (~2004) Crohn disease (~2004) Psoriatic arthritis (~2003) Benign essential HTN Type 2 diabetes mellitus with insulin therapy (~2012) Surgical History Anesthesia History of bunionectomy Lumbar stenosis History of tonsillectomy and adenoidectomy (~1954) History of knee replacement History of back surgery (~2008) Family History Father Rheumatoid arthritis Cancer Mother Parkinsons disease Skin cancer Grandmother Cancer Diabetes mellitus Brother Kidney stones Diabetes mellitus Skin cancer Grandfather Cancer Grandmother Mental health problem Grandfather Asthma Family/Other History of IBS Social History marital status: number of children: 2 household members: spouse occupational status: employed Smoking Status: Never smoker alcohol intake: current substance use type: does not use caffeine: Yes Type(s) of exercise: none Discharge Plan Discharge Plan Patient Disposition: Home Provider Discharge Comment: Ms. Shankar came in to the hospital with a pneumonia. She felt better with treatment. She was able to be discharged home. She should continue her antibiotics. She should follow up with her PCP within one week. Discharge orders & Medications Prescriptions: New levofloxacin 750 mg tablet 750 mg PO DAILY Qty: 3 0RF Continued gabapentin 600 mg tablet See Rx Instructions .ROUTE .COMPLEX Qty: 90 11RF Dose Instruction: TAKE 1 TABLET(600 MG) BY MOUTH THREE TIMES DAILY Rx Instructions: TAKE 1 TABLET(600 MG) BY MOUth at 1200, 3 tablets (1800 mg) at 2359 cyclobenzaprine 10 mg tablet 10 mg PO BEDTIME Qty: 90 3RF (DME) FreeStyle Davi 14 Day Sensor Kit See Rx Instructions .Route Qty: 6 11RF Rx Instructions: As directed insulin glargine [Lantus Solostar U-100 Insulin] 100 unit/mL (3 mL) insulin pen 18 unit SUBCUT BID rosuvastatin 10 mg tablet 10 mg PO BEDTIME duloxetine [Cymbalta] 60 mg capsule,delayed release(DR/EC) 60 mg PO DAILY Qty: 90 3RF insulin lispro 100 unit/mL insulin pen 6 - 10 unit SUBCUT TID metformin 1,000 mg PO BID methotrexate sodium 25 mg/mL solution 25 mg IM QWEEK Patient Comments: Patient takes Sundays at bedtime Skyrizi 150 mg/mL pen injector 150 mg SUBCUT [id number] Patient Comments: [NO ORIGINAL SIG] oxycodone-acetaminophen 5-325 mg tablet 1 tab PO Q6H PRN (Reason: pain or cough) Qty: 14 0RF benzonatate 100 mg capsule 100 mg PO BID-TID PRN (Reason: cough) Qty: 14 0RF losartan 25 mg tablet 25 mg PO BEDTIME folic acid 1 mg tablet 1 mg PO DAILY magnesium oxide 500 mg tablet 500 mg PO BID valacyclovir 500 mg tablet 500 mg PO BID famotidine [Pepcid] 20 mg tablet 20 mg PO BID solifenacin [Vesicare] 10 mg tablet 10 mg PO DAILY Qty: 90 3RF Follow up/Referrals: Jon Simeon DO [Primary Care Provider] - 01/10/23 8:30 am (Appt:01/10 @ 8:[address] Simeon please arrive 15 min prior to scheduled appointment time) Diet/Activity/Treatments Diet: Carb-consistent/Diabetic Visit Report/Discharge Packet Instructions: DI for Pneumonia -- Adult, DI for COVID-19 (Suspected or Confirmed ) Stand Alone Forms: Patient Portal/API, Stroke Signs & Symptoms Discharge Data Primary Care Provider: Jon Simeon VTE Deep Vein Thrombosis/Pulmonary Embolism Present on Admission: No
== END 2023-01-03 13:02 | disposition home or self-care (01) | DRG 871 ==
LOC: ED 22:38 → AC 22:39
PROVIDERS: Internal Medicine; Admitting Provider Internal Medicine; Emergency Provider Emergency Medicine; PCP Family Medicine; Referring Provider Emergency Medicine; Visit Provider Internal Medicine
DX: A41.9 Sepsis, unspecified organism (principal); J18.9 Pneumonia, unspecified organism; J96.01 Acute respiratory failure with hypoxia; U07.1 COVID-19; N39.0 Urinary tract infection, site not specified; K50.90 Crohn's disease, unspecified, without complications; D84.821 Immunodeficiency due to drugs; B96.20 Unspecified Escherichia coli [E. coli] as the cause of diseases classified elsewhere; R65.20 Severe sepsis without septic shock; L40.50 Arthropathic psoriasis, unspecified; Z79.631 Long term (current) use of antimetabolite agent; Z79.4 Long term (current) use of insulin
CPT/HCPCS: 36415; 36600; 70450; 71045; 71275; 80048; 80053; 80305; 81001; 82550; 82805; 82962; 83036; 83605; 83880; 84145; 84484; 85007; 85025; 85379; 85610; 85730; 87040; 87077; 87086; 87186; 87633; 87797; 92610; 93005; 93010; 94618; 94640; 94760; 94762; 96365; 96375; 99285; 99291; A9270; J0696; J1100; J1650; J1815; J1885; J2270; J2930; J7613; Q9967

== ENCOUNTER → 2023-01-16 14:06 | Outpatient (CLI) | payer MEDICARE, SELFPAY ==
[2023-01-03 10:55] VITALS: BMI 35.3
== END ==
PROVIDERS: PCP Family Medicine; Visit Provider Urology
DX: N39.0 Urinary tract infection, site not specified (principal); B96.20 Unspecified Escherichia coli [E. coli] as the cause of diseases classified elsewhere; N32.81 Overactive bladder; R39.9 Unspecified symptoms and signs involving the genitourinary system; Z87.440 Personal history of urinary (tract) infections; Z86.16 Personal history of COVID-19
CPT/HCPCS: 51798; 81002; 87077; 87086; 87147; 87186; 99214

== ENCOUNTER → 2023-04-06 10:30 | Outpatient (CLI) | payer MEDICARE, SELFPAY ==
[2023-01-03 10:55] VITALS: BMI 35.3
== END ==
LOC: WC 11:16
PROVIDERS: PCP Family Medicine; Referring Provider Physician Assistant; Visit Provider Physician Assistant
DX: E11.621 Type 2 diabetes mellitus with foot ulcer (principal); L97.522 Non-pressure chronic ulcer of other part of left foot with fat layer exposed; L84 Corns and callosities; R60.0 Localized edema; L53.9 Erythematous condition, unspecified; E11.42 Type 2 diabetes mellitus with diabetic polyneuropathy; L08.89 Other specified local infections of the skin and subcutaneous tissue; I10 Essential (primary) hypertension
CPT/HCPCS: 11042; 99204; 99214

== ENCOUNTER → 2023-04-12 14:21 | Outpatient (CLI) | payer MEDICARE, SELFPAY ==
[2023-01-03 10:55] VITALS: BMI 35.3
== END ==
LOC: WC 14:26
PROVIDERS: PCP Family Medicine; Referring Provider Internal Medicine; Visit Provider Surgery
DX: E11.621 Type 2 diabetes mellitus with foot ulcer (principal); L97.522 Non-pressure chronic ulcer of other part of left foot with fat layer exposed; I10 Essential (primary) hypertension; R60.0 Localized edema; M21.6X2 Other acquired deformities of left foot
CPT/HCPCS: 11042; 99213

== ENCOUNTER → 2023-04-18 10:04 | Outpatient (CLI) | payer MEDICARE, SELFPAY ==
[2023-01-03 10:55] VITALS: BMI 35.3
--- NOTE | 2023-04-18 | OV.WND_ITS ---
Progress Note Details Patient Name: Alena hSankar Patient Number: [id number] Clinician: Claudia Farfan RN Patient Date of : 1950 Physician / Account Services Associate: LindsaySrinivasa Patient SUBJECTIVE Chief Complaint This information was obtained from the Patient. My left second toe wound. I feel like it has drained a little more. Allergies mesalamine (Severity: Moderate, Reaction: colitis), codeine (Severity: Mild, Reaction: itching), adhesive (Reaction: blisters) HPI This information was obtained from the Patient. The following HPI elements were documented for the patient's wound: Location: L 2nd toe Duration: 03/24/23 Context: DFU Associated Signs and Symptoms: none 72-year-old female with past medical history that includes diabetes type 2, hypertension, psoriatic arthritis, OAB returns today for follow up of diabetic ulcer left 2nd toe. She had xray on 11/2022 showing no osteomyelitis. The patient has completed a course of Keflex and Bactrim and reports that the redness and swelling have completely resolved. The patient is receiving dressing changes with Hydrofera blue with a postop surgical shoe for pressure offloading. The great toe overlap wraps the 2nd toe and causes downward pressure. The patient was seen by Dr. Moss who discussed the possibility of proceeding with an amputation however the patient prefers to continue with local wound care. The patient denies having any pain or discomfort nor has he had any fever or chills. She has not noted any significant drainage. The patient reports a good appetite and good control of blood sugars. No recent changes in overall health. PMH is significant for amputation to the distal tip of this same toe around 4 years ago, per imaging was thought to have osteomyelitis but per patient no osteomyelitis was found during surgery. She has history with multiple bunion surgeries of same foot. She denies any fevers, chills or feeling ill. On exam today the ulcer is continuing to improve, no sign of active infection. ABIs show flow adequate for healing. LABS: 04/06/23 SELIN: R 1.17, L 1.12 04/02/23 A1c: 7.3 Xray with no significant change since 11/2022, no sign of osteo or change in bone structure Medical History This information was obtained from the Chart, Patient. Patient has a medical history of: degenerative joint disease diabetes mellitus Arthritis Alena Shankar [id number] 1950 Anemia Spinal Stenosis Crohn's Disease IBD Fibromyalgia hypertension peripheral neuropathy Additional Information Does patient have a history of Cancer? Yes? Complete all questions.: Yes Location of Cancer: Skin Patient underwent Radiation Treatment? If yes, answer question below.: No Surgical History This information was obtained from the Chart, Patient. Patient has a surgical history of: knee replacement - (bilateral) tonsillectomy- history of breast augmentation- left bunionectomy x 2- left ht repair 2, 3- degloving of 1st toe post surgical- lumbar fusion- cervical fusion- OBJECTIVE Vitals Height/Length: 69 in (175.26 cm), Weight: 208.5 lbs (94.77 kgs), BMI: 30.8, Temperature: 99.5 ?F (37.5 ?C), Pulse: 81 bpm, Respiratory Rate: 16 breaths/min, Blood Pressure: 128/75 mmHg, Pulse Oximetry: 96 %. General Notes CBG per patient, 112. Physical Exam Constitutional: Vital signs reviewed and noted. Well developed, well nourished, and in no acute distress. Alert and oriented x3. Respiratory: Even respirations without use of accessory muscles. No intercoastal retractions noted. Even and non labored respiration. Integumentary (Hair, Skin): See wound assessment. Neurological: decreased lower extremity sensation. Psychiatric: Orientation to time, place and person: Normal affect with normal thought pattern. Additional Information The patient's potential to heal is: good. Wound Assessment(s) Alena Shankar [id number] 1950 Wound #1 Left Toe - Second is an acute [place] Grade 2 Diabetic Ulcer and has received a status of Not Healed. Initial wound encounter measurements are 2.4cm length x 1.1cm width x 0.2 cm depth, with an area of 2.64 sq cm and a volume of 0.528 cubic cm. Adipose is exposed. No tunneling has been noted. No sinus tract has been noted. No undermining has been noted. There is a Moderate amount of serous drainage noted which has no odor. The patient reports a wound pain of level 0/10. The wound margin is regular Wound bed has Yes, pink, firm, granulation, Yes slough, No eschar, Yes epithelialization. The periwound skin exhibited edema. The periwound skin did not exhibit callus, maceration and erythema. The periwound skin was moist. The temperature of the periwound skin is WNL. Periwound skin does not exhibit signs or symptoms of infection. Local Pulse is Palpable. Additional Information Other devitalized tissue present: biofilm Limited to breakdown of skin: No ASSESSMENT Active Problems ICD-10 (Encounter Diagnosis) E11.621 - Type 2 diabetes mellitus with foot ulcer (Encounter Diagnosis) E11.42 - Type 2 diabetes mellitus with diabetic polyneuropathy (Encounter Diagnosis) L97.522 - Non-pressure chronic ulcer of other part of left foot with fat layer exposed General Notes diabetic ulcer left 2nd toe, improved the following factors have been identified that may affect wound healing: Devitalized tissue Biofilm Neuropathy Pressure Diabetes acquired foot deformity Goals: remove devitalized tissue Remove and prevent biofilm Pressure offloading Identifying treat infection Wound closure Prevent recurrence Plan: debridement, continue dressing changes with Hydrofera blue and pressure offloading with postop surgical shoe, follow up in 1 week for a recheck. PROCEDURES Wound #1 Wound #1 (Diabetic Ulcer) is located on the left toe - second. A skin/subcutaneous tissue level surgical debridement with a total area debrided of 2.88 sq cm. was performed by Srinivasa Montoya MD. Subcutaneous was removed along with devitalized tissue: biofilm, exudate and slough. The following instrument(s) were used: curette. Pain control was achieved using EMLA lidocaine/prilocaine Alena Shankar [id number] 1950 2.5%/2.5%. A time out was conducted prior to the start of the procedure. A moderate amount of bleeding was controlled with pressure. The procedure was tolerated well with a pain level of 0 throughout and a pain level of 0 following the procedure. Post Debridement Measurements: 2.4cm length x 1.2cm width x 0.2cm depth; with an area of 2.88 sq cm and a volume of 0.576 cubic cm. Additional Information Muscle fascia or bone removed and sent to pathology?: No PLAN Wound Orders: Wound #1 Left Toe - Second Anesthetic Topical Xylocaine to wound bed Hygiene May shower with wound protected, using a cast protector or plastic bag and tape Cleanser Cleanse Wound with normal saline Dressings Primary dressing - Hydrofera blue foam cut to size of wound bed. Cover and secure with - Hypafix tape. Change Dressing - Every other day. May change more frequently if dressing becomes soiled or falls off. Physician Review: Reviewed and evaluated labs. Discussed the Plan of Care @ bedside with - patient Reviewed hospital records. I, as the physician, have reviewed the orders scribed by the center RN's and agree. Additional Orders: Off-Loading Keep weight off - Left foot as much as possible. Use/Wear when walking - Pierce adhesive pad in Post-op shoe on left foot. Dietary Increased protein - Aids in wound healing. We recommend a diabetic friendly protein supplement such as Glucerna. Follow-Up Appointments Return Appointment - One week. Other information: If you develop fever, chills, increased pain, drainage, redness or swelling please call our office. If after hours, respond to the ER. Should you experience any significant changes in your wound(s) or have any questions regarding your home care instructions please contact the wound center @ [phone]. If after hours, contact your primary care physician or go to the hospital emergency room. Scribing Attestation I attest, as the nurse, that I scribed these orders for the physician. Plan of Care: 01. ENSURE/ESTABLISH OPTIMAL BLOOD FLOW : - Complete lower extremity assessment - Perform non-invasive vascular testing (i.e. SELIN) and document findings. Consider repeating when wound healing <40% after 30 days of wound care. 02. ASSESS FOR/TREAT INFECTION : - Evaluate for signs and symptoms of infection and document findings. - Obtain culture and sensitivity (CandS) or tissue culture when infection is suspected. (NOTE:) Consider repeating when wound healing <40% after 30 days of wound care. - Order appropriate antibiotics based on patient presentation and culture and sensitivity results. Instruct patient on the importance of taking medication as prescribed. Alena Shankar [id number] 1950 03. DEBRIDE WEEKLY OR MORE OFTEN PRN : - Evaluate patient in center weekly to assess wound bed and margins for need for debridement. - Debridement by any method to remove devitalized/necrotic tissue to promote healing and prevent further complications. Goal is to stimulate and/or maintain acute phase of wound healing by reducing bacterial burden and devitalized/non-viable tissue. 04. OPTIMIZE GLUCOSE CONTROL and NUTRITION : - Order/review pertinent labs to evaluate renal function, glucose control, and nutritional status. - Complete a nutrition risk assessment. - Order PCP or Endocrine Consult when A1C is >7.0 for follow up and stabilization of glucose. 05. OFFLOADING PLAN : - Evaluate plan for offloading - Advise patient to offload the foot ulcer. (i.e. half shoe, surgical shoe, insert, custom shoe, felt and foam, cam walker, multipodus splint, total contact cast, bi-valve cast, posterior splint). - Provide education materials/discuss offloading strategies as appropriate. - Assess tolerance and compliance of offloading. 06. OPTIMIZE HOST FACTORS: - Assess and review patient history for wound etiology, co-morbid conditions, medication regime, and smoking history. - Assess lifestyle factors such as smoking, alcohol/drug abuse, eating habits/malnutrition and activity level. 07. DRESSING SELECTION : - Evaluate for dressing-related factors, such as availability, wear time, adaptability and use to better optimize wound healing and patient compliance. - Choose topical treatments and/or dressing based on wound type and appearance, periwound skin condition, wound size and depth, anatomic location, volume of exudate, edema in the lower extremities, and risk or presence of infection. - Educate the patient/family/caregiver to monitor dressing daily. Change dressing only as needed but never less frequently than weekly so that wound bed can be reassessed. 08. ADVANCED MODALITIES : - Evaluate for appropriateness of Cellular Tissue Product therapy. - Evaluate for appropriateness of Hyperbaric Oxygen Therapy. - Set treatment goals according to patient and/or caregiver???s ability/ compliance. 09. FALL PREVENTION : - Complete fall assessment. 10. PAIN MANAGEMENT : - Complete pain assessment - Prepare patient to set reasonable expectations prior to procedure. - Instruct the patient to call ???time-out??? if pain is too intense during procedure. 11. MEASURABLE GOALS for Wound Healing and/or Hyperbaric Oxygen Therapy : - Decrease Wound Dimensions - Wound Closure - Improve quality of life 12. DURATION/FREQUENCY of Wound Care Visits : - 1x weekly for 30 days Electronic Signature(s) Signed By: Date: Srinivasa Montoya MD 04/19/2023 08:34:58 (PT) Alena Shankar [id number] 1950 Entered By: Srinivasa Montoya MD on 04/18/2023 10:58:51 (PT) Alena Shankar [id number] 1950
== END ==
LOC: WC 10:05
PROVIDERS: PCP Family Medicine; Referring Provider Physician Assistant; Visit Provider Surgery
DX: E11.621 Type 2 diabetes mellitus with foot ulcer (principal); E11.42 Type 2 diabetes mellitus with diabetic polyneuropathy; L97.522 Non-pressure chronic ulcer of other part of left foot with fat layer exposed; R60.0 Localized edema; M21.6X2 Other acquired deformities of left foot
CPT/HCPCS: 11042

== ENCOUNTER → 2023-04-25 14:07 | Outpatient (CLI) | payer MEDICARE, SELFPAY ==
[2023-01-03 10:55] VITALS: BMI 35.3
== END ==
LOC: WC 14:08
PROVIDERS: PCP Family Medicine; Referring Provider Physician Assistant; Visit Provider Surgery
DX: E11.621 Type 2 diabetes mellitus with foot ulcer (principal); E11.42 Type 2 diabetes mellitus with diabetic polyneuropathy; L97.522 Non-pressure chronic ulcer of other part of left foot with fat layer exposed; L84 Corns and callosities; M21.6X2 Other acquired deformities of left foot
CPT/HCPCS: 11042

== ENCOUNTER → 2023-05-01 14:51 | Outpatient (CLI) | payer MEDICARE, SELFPAY ==
[2023-01-03 10:55] VITALS: BMI 35.3
== END ==
LOC: WC 14:52
PROVIDERS: PCP Family Medicine; Referring Provider Family Medicine; Visit Provider Surgery
DX: E11.621 Type 2 diabetes mellitus with foot ulcer (principal); E11.42 Type 2 diabetes mellitus with diabetic polyneuropathy; L97.522 Non-pressure chronic ulcer of other part of left foot with fat layer exposed; L84 Corns and callosities; I10 Essential (primary) hypertension; M21.6X9 Other acquired deformities of unspecified foot
CPT/HCPCS: 11042

== ENCOUNTER → 2023-05-08 10:30 | Outpatient (CLI) | payer MEDICARE, SELFPAY ==
[2023-01-03 10:55] VITALS: BMI 35.3
== END ==
LOC: WC 10:32
PROVIDERS: PCP Family Medicine; Referring Provider Physician Assistant; Visit Provider Surgery
DX: E11.621 Type 2 diabetes mellitus with foot ulcer (principal); E11.42 Type 2 diabetes mellitus with diabetic polyneuropathy; L97.522 Non-pressure chronic ulcer of other part of left foot with fat layer exposed; L84 Corns and callosities; R60.0 Localized edema; M21.6X2 Other acquired deformities of left foot
CPT/HCPCS: 11042; 99213

== ENCOUNTER → 2023-05-22 14:08 | Outpatient (CLI) | payer MEDICARE, SELFPAY ==
[2023-01-03 10:55] VITALS: BMI 35.3
== END ==
LOC: WC 14:09
PROVIDERS: PCP Family Medicine; Referring Provider Physician Assistant; Visit Provider Surgery
DX: E11.621 Type 2 diabetes mellitus with foot ulcer (principal); E11.42 Type 2 diabetes mellitus with diabetic polyneuropathy; L97.522 Non-pressure chronic ulcer of other part of left foot with fat layer exposed; M21.6X2 Other acquired deformities of left foot
CPT/HCPCS: 11042; 99212

== ENCOUNTER → 2023-06-05 14:29 | Outpatient (CLI) | payer MEDICARE, SELFPAY ==
[2023-01-03 10:55] VITALS: BMI 35.3
== END ==
LOC: WC 14:32
PROVIDERS: PCP Family Medicine; Referring Provider Physician Assistant; Visit Provider Surgery
DX: E11.621 Type 2 diabetes mellitus with foot ulcer (principal); E11.42 Type 2 diabetes mellitus with diabetic polyneuropathy; L97.522 Non-pressure chronic ulcer of other part of left foot with fat layer exposed; L84 Corns and callosities; M21.6X2 Other acquired deformities of left foot; I10 Essential (primary) hypertension; L40.50 Arthropathic psoriasis, unspecified
CPT/HCPCS: 11042; 99213

== ENCOUNTER → 2023-06-20 13:23 | Outpatient (CLI) | payer MEDICARE, SELFPAY ==
[2023-01-03 10:55] VITALS: BMI 35.3
== END ==
LOC: WC 13:24
PROVIDERS: PCP Family Medicine; Referring Provider Physician Assistant; Visit Provider Surgery
DX: E11.621 Type 2 diabetes mellitus with foot ulcer (principal); L97.522 Non-pressure chronic ulcer of other part of left foot with fat layer exposed; L84 Corns and callosities; E11.42 Type 2 diabetes mellitus with diabetic polyneuropathy; I10 Essential (primary) hypertension; L40.52 Psoriatic arthritis mutilans; M21.6X2 Other acquired deformities of left foot
CPT/HCPCS: 11042; 87070; 87147; 87205; 99213

== ENCOUNTER → 2023-06-27 14:33 | Outpatient (CLI) | payer MEDICARE, SELFPAY ==
[2023-01-03 10:55] VITALS: BMI 35.3
== END ==
LOC: WC 14:38
PROVIDERS: PCP Family Medicine; Referring Provider Physician Assistant; Visit Provider Surgery
DX: E11.628 Type 2 diabetes mellitus with other skin complications (principal); L84 Corns and callosities; R23.4 Changes in skin texture; I10 Essential (primary) hypertension; M20.60 Acquired deformities of toe(s), unspecified, unspecified foot
CPT/HCPCS: 99213

== ENCOUNTER → 2023-07-04 14:24 | Outpatient (CLI) | payer MEDICARE, SELFPAY ==
[2023-01-03 10:55] VITALS: BMI 35.3
== END ==
PROVIDERS: PCP Family Medicine; Referring Provider Physician Assistant; Visit Provider Surgery
DX: Z09 Encounter for follow-up examination after completed treatment for conditions other than malignant neoplasm (principal); Z86.31 Personal history of diabetic foot ulcer
CPT/HCPCS: 99211; 99213

== ENCOUNTER → 2023-07-24 11:41 | Outpatient (CLI) | payer MEDICARE, SELFPAY ==
[2023-01-03 10:55] VITALS: BMI 35.3
== END ==
LOC: WC 11:42
PROVIDERS: PCP Family Medicine; Referring Provider Physician Assistant; Visit Provider Surgery
DX: E11.42 Type 2 diabetes mellitus with diabetic polyneuropathy (principal); L84 Corns and callosities
CPT/HCPCS: 99212; 99213

== ENCOUNTER → 2023-08-07 14:17 | Outpatient (CLI) | payer MEDICARE, SELFPAY ==
[2023-01-03 10:55] VITALS: BMI 35.3
== END ==
PROVIDERS: PCP Family Medicine; Visit Provider Urology
DX: N32.81 Overactive bladder (principal)
CPT/HCPCS: 87077; 87086

== ENCOUNTER → 2023-10-23 13:54 | Outpatient (CLI) | payer MEDICARE, SELFPAY ==
[2023-01-03 10:55] VITALS: BMI 35.3
--- NOTE | 2023-10-23 | DI.MG.S_ITS ---
BILATERAL DIGITAL SCREENING MAMMOGRAM 3D/2D WITH CAD WITH AUGMENTATION: 10/23/2023 CLINICAL: Routine screening. Comparison is made to exam dated: 10/09/2022 mammogram - [facility]. Both breasts are heterogeneously dense, which may obscure small masses (category c / 51-75% glandular tissue). Current study was also evaluated with a Computer Aided Detection (CAD) system. Bilateral breast implants are intact. No significant masses, calcifications, or other findings are seen in either breast. There has been no significant interval change. IMPRESSION: BENIGN There is no mammographic evidence of malignancy. A 1 year screening mammogram is recommended. Based on the Tyrer Cuzick model (a risk assessment model) the patient's lifetime risk is 8.5% and her 10 year risk is 6.4%. According to the ACR, ACS, and NCCN guidelines, an annual breast MRI exam along with mammogram is recommended if the patient's lifetime risk is 20% or greater. This exam was interpreted at Station ID: [id number]. NOTE: For mammograms, a report in lay terms will be sent to the patient. Approximately 15% of breast malignancies will not be visualized mammographically. In the management of a palpable breast mass, a negative mammogram must not discourage biopsy of a clinically suspicious lesion. Electronically Signed By: Katerina Thompson M.D., Ph.D. vin/amador:10/24/2023 13:22:23 letter sent: Normal Exam ACR BI-RADS Category 2: Benign Finding(s) 3342F
== END ==
PROVIDERS: PCP Family Medicine; Referring Provider Family Medicine; Visit Provider Family Medicine
DX: Z12.31 Encounter for screening mammogram for malignant neoplasm of breast (principal); R92.333 Mammographic heterogeneous density, bilateral breasts
CPT/HCPCS: 77063; 77067

== ENCOUNTER → 2024-04-15 14:31 | Outpatient (CLI) | payer MEDICARE, SELFPAY ==
[2023-01-03 10:55] VITALS: BMI 35.3
[2024-04-15 15:20] LABS: Hemoglobin A1C% w Est Avg Glu 4.8 % (4.0-6.0)
[2024-04-15 15:41] LABS: BUN Creatinine Ratio 22.2 (6-22); Blood Urea Nitrogen 20 mg/dL (7-17); Calcium 10.1 mg/dL (8.4-10.2); Carbon Dioxide 28 mmol/L (22-32); Chloride 102 mmol/L (98-107); Cholesterol 135 mg/dL (140-199); Estimated Glomerular Filt Rate > 60 mL/min (>60); Glucose 153 mg/dL (80-110); HDL Cholesterol 49 mg/dL (40-60); HEMOLYSIS < 15 (0-50); LDL Cholesterol Calculated 51 mg/dL (<100); Potassium 5.1 mmol/L (3.4-5.1); Sodium 139 mmol/L (137-145); Triglycerides 176 mg/dL (35-150)
== END ==
PROVIDERS: PCP Family Medicine; Referring Provider Family Medicine; Visit Provider Family Medicine
DX: Z00.00 Encounter for general adult medical examination without abnormal findings (principal); E11.9 Type 2 diabetes mellitus without complications; Z79.4 Long term (current) use of insulin; L40.50 Arthropathic psoriasis, unspecified; K50.90 Crohn's disease, unspecified, without complications
CPT/HCPCS: 36415; 80048; 80061; 83036

== ENCOUNTER 2024-04-24 16:44 | Emergency (ER) | payer MEDICARE, SELFPAY ==
[2023-01-03 10:55] VITALS: BMI 35.3
[2024-04-24 17:07] VITALS: BP 124/55; PULSE 75; RESP 16; TEMP 36.7; O2SAT 96; BMI 30.1
--- NOTE | 2024-04-24 17:16 | DI.CT.S_ITS ---
PROCEDURE: CT HEAD/BRAIN WO CON INDICATIONS: fall on face TECHNIQUE: Noncontrast 4.5 mm thick angled axial sections acquired from the foramen magnum to the vertex, with coronal and sagittal reformats. For radiation dose reduction, the following was used: automated exposure control, adjustment of mA and/or kV according to patient size. COMPARISON: [facility], CT, CT HEAD/BRAIN WO CON, 12/30/2022, 21:21. FINDINGS: Image quality: Diagnostic. CSF spaces: Basal cisterns are patent. No extra-axial fluid collections. Ventricles are normal in size and shape. Brain: No midline shift. No intracranial masses or hemorrhage. Simmons-white matter interface is normal. Skull and face: Calvarium and visualized facial bones are intact, without suspicious lesions. Sinuses: Visualized sinuses and mastoids are clear. IMPRESSION: No acute intracranial pathology. Dictated by: Joselo Guerrero M.D. on 04/24/2024 at 17:38 Approved by: Joselo Guerrero M.D. on 04/24/2024 at 17:39
--- NOTE | 2024-04-24 17:16 | DI.CT.S_ITS ---
PROCEDURE: CT FACIAL BONES WO CON INDICATIONS: fall on face TECHNIQUE: Noncontrast 2.5 mm thick axial images acquired from the mandible through the frontal sinuses, with coronal and sagittal reformatting. For radiation dose reduction, the following was used: automated exposure control, adjustment of mA and/or kV according to patient size. COMPARISON: None. FINDINGS: Image quality: Excellent. Bones and teeth: Orbital paredes are intact. Sinus paredes show no fracture or deformity. Nasal bones and septum are intact. Visualized portions of the mandible demonstrate no fractures or subluxation. Zygomatic arches are intact. Pterygoid plates are intact. Visualized portions of the skull base and auditory canals are intact. Partially identified cervical fusion hardware. Sinuses: Paranasal sinuses are aerated, without fluid levels, mucosal thickening, or mucoceles. Mastoid air cells are aerated. Soft tissues: No edema, masses, or fluid collections. No enlarged lymph nodes. No soft tissue lacerations or debris. Vascular: Visualized vascular structures appear normal in the absence of contrast. Bony vascular foramina and canals are intact. IMPRESSION: No acute CT abnormality of the facial bones. Dictated by: Joselo Guerrero M.D. on 04/24/2024 at 17:39 Approved by: Joselo Guerrero M.D. on 04/24/2024 at 17:41
--- NOTE | 2024-04-24 17:16 | DI.CT.S_ITS ---
PROCEDURE: CT CERVICAL SPINE WO CON INDICATIONS: fall on face TECHNIQUE: Noncontrast 3 mm thick sections acquired from the skull base to the T4 level. Sagittal and coronal reformats were then constructed. For radiation dose reduction, the following was used: automated exposure control, adjustment of mA and/or kV according to patient size. COMPARISON: None. FINDINGS: Image quality: Excellent. Bones: No fractures or dislocations. Visualized superior ribs are intact. Status post prior C5-C7 ACDF without hardware complication. Pseudoarthrosis of the C3-C4 vertebral bodies. Multilevel facet and uncinate arthropathy. No severe central canal stenosis. Soft tissues: Prevertebral soft tissues are normal in thickness. No paravertebral hematomas. No apical pneumothoraces. IMPRESSION: No acute CT abnormality of the cervical spine. Dictated by: Joselo Guerrero M.D. on 04/24/2024 at 18:02 Approved by: Joselo Guerrero M.D. on 04/24/2024 at 18:04
--- NOTE | 2024-04-24 17:17 | DI.RAD.S_ITS ---
PROCEDURE: XR HIP W PEL IF DONE LT 2V INDICATIONS: fall TECHNIQUE: AP pelvis with lateral view(s) of the left hip(s). COMPARISON: [facility] [place], [place], XR PELVIS WITH LATERAL HIP LEFT, 01/24/2023, 16:03. FINDINGS: Diffuse osseous demineralization. Evaluation of the sacrum obscured by overlying bowel gas. Moderate bilateral hip osteoarthritis with CAM morphology of the proximal femurs. No acute fracture or dislocation. No pelvic ring disruption. Partially identified lumbar fusion hardware. IMPRESSION: No acute fracture or dislocation of the pelvis or left hip. Dictated by: Joselo Guerrero M.D. on 04/24/2024 at 18:00 Approved by: Joselo Guerrero M.D. on 04/24/2024 at 18:02
--- NOTE | 2024-04-24 20:06 | EKG_ITS ---
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
--- NOTE | 2024-04-24 21:43 | ED_ITS ---
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 No seizure shaking activity. No shortness of breath or cough. She would slipped out of bed, did not seem to have any syncopal episode from her initial injury. No initial loss of consciousness or subsequent loss of consciousness. No nausea or vomiting. No focal weakness to face arm or leg. No focal numbness to face arm or leg. She does have some left cheek area swelling. She has not take blood thinner medications. History of Crohn's disease, avoids ibuprofen, taking Tylenol, on biologic remitted of treatment, and generally seems reasonably well controlled, no recent GI related symptoms. She also had report of left hip pain, that seems to be improved without specific treatment. Related Data Home Medications Medication Instructions Recorded Confirmed insulin glargine 100 unit/mL (3 18 unit SUBCUT BID 03/21/22 04/15/24 mL) subcutaneous pen (Lantus Solostar U-100 Insulin) insulin lispro 100 unit/mL 6 - 10 unit SUBCUT TID 03/21/22 04/15/24 subcutaneous pen folic acid 1 mg tablet 1 mg PO DAILY 07/10/22 04/15/24 magnesium oxide 500 mg PO BID 07/10/22 04/15/24 metformin 1,000 mg PO BID 07/10/22 04/15/24 valacyclovir 500 mg tablet 500 mg PO BID 07/10/22 04/15/24 famotidine 20 mg tablet (Pepcid) 20 mg PO BID 07/11/22 04/15/24 methotrexate sodium 25 mg/mL 25 mg IM QWEEK 09/26/22 04/15/24 injection solution risankizumab-rzaa 150 mg/mL 150 mg SUBCUT [id number] 09/26/22 04/15/24 subcutaneous pen injector (Skyrizi) sulfasalazine 500 mg tablet 1,000 mg PO BID 10/01/23 04/15/24 celecoxib 200 mg capsule mg PO DAILY 01/29/24 04/15/24 Previous Rx's Medication Instructions Recorded flash glucose sensor (FreeStyle #6 ea 04/04/22 Davi 14 Day Sensor kit) cyclobenzaprine 10 mg tablet 10 mg PO BEDTIME #90 tabs 05/09/23 solifenacin 10 mg tablet (Vesicare) 10 mg PO DAILY #90 tabs 08/07/23 flash glucose scanning reader #1 ea 10/01/23 (FreeStyle Davi 2 Medina) hyoscyamine sulfate 0.125 mg 0.125 - 0.25 mg (1 - 2 x 0.125 mg) 10/01/23 sublingual tablet PO QID PRN rectal pain #30 tabs ondansetron HCl 4 mg tablet 4 mg PO Q6-8H PRN nausea and 10/01/23 vomiting #30 tabs gabapentin 600 mg tablet See Rx Instructions .Route 01/28/24 .COMPLEX #90 tabs Disabled Parking Permit #1 ea 01/29/24 duloxetine 60 mg capsule,delayed 60 mg PO DAILY #90 caps 04/08/24 release (Cymbalta) losartan 25 mg tablet 25 mg PO DAILY #90 tabs 04/15/24 rosuvastatin 10 mg tablet 10 mg PO BEDTIME #100 tabs 04/15/24 Allergies Allergy/AdvReac Type Severity Reaction Status Date / Time adhesive tape Allergy Unknown Verified 04/24/24 17:07 codeine Allergy Unknown Verified 04/24/24 17:07 mesalamine [From Asacol] AdvReac Unknown Verified 04/24/24 17:07 Patient History Medical History (Updated 04/24/24 @ 21:57 by Alexis Giron MD) Encounter for subsequent annual wellness visit (AWV) in Medicare patient Family history of Parkinson disease Amputated toe of left foot Toe ulcer History of COVID-19 History of urinary tract infection History of squamous cell carcinoma History of basal cell cancer Foot pain (~2013) Measles (~195) History of cold sores (~1964) Chicken pox (~1957) Anemia Vertigo (~2007) Human papilloma virus (~2009) History of urinary incontinence (~2013) Fatty liver (~2004) Hemorrhoid GI bleeding (~2004) Colon polyps Skin cancer History of liver disease History of skin cancer Hx of hyperlipidemia OAB (overactive bladder) Thyroid nodule (~2017) Peripheral neuropathy (~2004) Crohn disease (~2004) Psoriatic arthritis (~2003) Benign essential HTN Type 2 diabetes mellitus with insulin therapy (~2012) Surgical History Anesthesia History of bunionectomy Lumbar stenosis History of tonsillectomy and adenoidectomy (~1954) History of knee replacement History of back surgery (~2008) Family History Father Rheumatoid arthritis Cancer Mother Parkinsons disease Skin cancer Grandmother Cancer Diabetes mellitus Brother Kidney stones Diabetes mellitus Skin cancer Grandfather Cancer Grandmother Mental health problem Grandfather Asthma Family/Other History of IBS Social History marital status: number of children: 2 household members: spouse occupational status: employed Smoking Status: Never smoker alcohol intake: current substance use type: does not use caffeine: Yes Type(s) of exercise: none Smoking Status: Never smoker alcohol intake frequency: holidays/special occasions only Exam Narrative Exam Narrative: GENERAL: Well-developed patient, in mild distress. HEAD: Atraumatic. Normocephalic. EYES: Pupils equal round and reactive. Extraocular motions intact. No scleral icterus. No injection or drainage. ENT: Nose without bleeding, purulent drainage. Throat without erythema, tonsillar hypertrophy or exudate. Airway patent. Left facial swelling, able to open mouth, tongue not obviously injured, no obvious dental injuries. NECK: Trachea midline. Non tender CARDIOVASCULAR: Regular rate and rhythm without murmurs, gallops, or rubs. RESPIRATORY: Clear to auscultation. Breath sounds equal bilaterally. No wheezes, rales, or rhonchi. GASTROINTESTINAL: Abdomen soft, non-tender, nondistended. EXTREMITIES: No edema or joint tenderness. No limb length discrepancy. No tenderness anterior or trochanteric area left hip, no skin changes, no bruising or crepitance or swelling. BACK: Nontender without deformity or crepitance. No flank tenderness. NEURO: AOx3. Motor functions grossly nonfocal SKIN: No rash or erythema of visible areas Initial Vital Signs Initial Vital Signs: Vital Signs Temperature 98.1 F 04/24/24 17:07 Pulse Rate 75 04/24/24 17:07 Respiratory Rate 16 04/24/24 17:07 Blood Pressure 124/55 L 04/24/24 17:07 Pulse Oximetry 96 04/24/24 17:07 Oxygen Delivery Method Room Air 04/24/24 17:07 Course Orders Ordered: ED Orders 04/24/24 17:16 CT cervical spine wo con Stat CT facial bones wo con Stat CT head/brain wo con Stat 04/24/24 17:17 XR hip w pel if done LT 2V Stat 04/24/24 17:21 EKG-12 Lead Stat Vital Signs Vital signs: Vital Signs - 8 hr 04/24/24 17:07 Temperature 98.1 F Pulse Rate 75 Respiratory Rate 16 Blood Pressure 124/55 L Pulse Oximetry 96 Oxygen Delivery Method Room Air MDM - Head Injury Imaging Data CT scan - head: Radiologist's Impression: [address] [address] [address] Scan Report Signed Patient: Alena Shankar MR#: [id number] : 1950 Acct:[id number] Age/Sex: 73 / F Date of Service: 04/24/24 Loc: ED Accession Number: [id number] Procedure: CT head/brain wo con Ordering Provider: Anitha Floyd D.O. PROCEDURE: CT HEAD/BRAIN WO CON INDICATIONS: fall on face TECHNIQUE: Noncontrast 4.5 mm thick angled axial sections acquired from the foramen magnum to the vertex, with coronal and sagittal reformats. For radiation dose reduction, the following was used: automated exposure control, adjustment of mA and/or kV according to patient size. COMPARISON: [facility], CT, CT HEAD/BRAIN WO CON, 12/30/2022, 21:21. FINDINGS: Image quality: Diagnostic. CSF spaces: Basal cisterns are patent. No extra-axial fluid collections. Ventricles are normal in size and shape. Brain: No midline shift. No intracranial masses or hemorrhage. Simmons-white matter interface is normal. Skull and face: Calvarium and visualized facial bones are intact, without suspicious lesions. Sinuses: Visualized sinuses and mastoids are clear. IMPRESSION: No acute intracranial pathology. Dictated by: Joselo Guerrero M.D. on 04/24/2024 at 17:38 Approved by: Joselo Guerrero M.D. on 04/24/2024 at 17:39 CT maxillofacial noncontrast: Radiologist's Impression: [address] [address] [address] Scan Report Signed Patient: Alena Shankar MR#: [id number] : 1950 Acct:[id number] Age/Sex: 73 / F Date of Service: 04/24/24 Loc: ED Accession Number: [id number] Procedure: CT facial bones wo con Ordering Provider: Anitha Floyd D.O. PROCEDURE: CT FACIAL BONES WO CON INDICATIONS: fall on face TECHNIQUE: Noncontrast 2.5 mm thick axial images acquired from the mandible through the frontal sinuses, with coronal and sagittal reformatting. For radiation dose reduction, the following was used: automated exposure control, adjustment of mA and/or kV according to patient size. COMPARISON: None. FINDINGS: Image quality: Excellent. Bones and teeth: Orbital paredes are intact. Sinus paredes show no fracture or deformity. Nasal bones and septum are intact. Visualized portions of the mandible demonstrate no fractures or subluxation. Zygomatic arches are intact. Pterygoid plates are intact. Visualized portions of the skull base and auditory canals are intact. Partially identified cervical fusion hardware. Sinuses: Paranasal sinuses are aerated, without fluid levels, mucosal thickening, or mucoceles. Mastoid air cells are aerated. Soft tissues: No edema, masses, or fluid collections. No enlarged lymph nodes. No soft tissue lacerations or debris. Vascular: Visualized vascular structures appear normal in the absence of contrast. Bony vascular foramina and canals are intact. IMPRESSION: No acute CT abnormality of the facial bones. Dictated by: Joselo Guerrero M.D. on 04/24/2024 at 17:39 Approved by: Joselo Guerrero M.D. on 04/24/2024 at 17:41 CT - cervical spine: Radiologist's Impression: [address] [address] [address] Scan Report Signed Patient: Alena Shankar MR#: [id number] : 1950 Acct:[id number] Age/Sex: 73 / F Date of Service: 04/24/24 Loc: ED Accession Number: [id number] Procedure: CT cervical spine wo con Ordering Provider: Mank,Anitha C D.O. PROCEDURE: CT CERVICAL SPINE WO CON INDICATIONS: fall on face TECHNIQUE: Noncontrast 3 mm thick sections acquired from the skull base to the T4 level. Sagittal and coronal reformats were then constructed. For radiation dose reduction, the following was used: automated exposure control, adjustment of mA and/or kV according to patient size. COMPARISON: None. FINDINGS: Image quality: Excellent. Bones: No fractures or dislocations. Visualized superior ribs are intact. Status post prior C5-C7 ACDF without hardware complication. Pseudoarthrosis of the C3-C4 vertebral bodies. Multilevel facet and uncinate arthropathy. No severe central canal stenosis. Soft tissues: Prevertebral soft tissues are normal in thickness. No paravertebral hematomas. No apical pneumothoraces. IMPRESSION: No acute CT abnormality of the cervical spine. Dictated by: Joselo Guerrero M.D. on 04/24/2024 at 18:02 Approved by: Joselo Guerrero M.D. on 04/24/2024 at 18:04 Left hip x-ray with pelvis: Radiologist's Impression: [address] [address] XRay Report Signed Patient: Alena Shankar MR#: [id number] : 1950 Acct:[id number] Age/Sex: 73 / F Date of Service: 04/24/24 Loc: ED Accession Number: [id number] Procedure: XR hip w pel if done LT 2V Ordering Provider: Anitha Floyd D.O. PROCEDURE: XR HIP W PEL IF DONE LT 2V INDICATIONS: fall TECHNIQUE: AP pelvis with lateral view(s) of the left hip(s). COMPARISON: [facility], XR PELVIS WITH LATERAL HIP LEFT, 01/24/2023, 16:03. FINDINGS: Diffuse osseous demineralization. Evaluation of the sacrum obscured by overlying bowel gas. Moderate bilateral hip osteoarthritis with CAM morphology of the proximal femurs. No acute fracture or dislocation. No pelvic ring disruption. Partially identified lumbar fusion hardware. IMPRESSION: No acute fracture or dislocation of the pelvis or left hip. Dictated by: Joselo Guerrero M.D. on 04/24/2024 at 18:00 Approved by: Joselo Guerrero M.D. on 04/24/2024 at 18:02 ECG Data Attestation: I personally reviewed and interpreted this ECG as follows: Interpretation: Normal sinus rhythm with rate of 66, no obvious ST segment elevation or depression changes. T-wave inversion lead 3 but upright another contiguous inferior leads. UT 174, QRS 80, QTC 421. 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 Had complaint of left-sided facial pain and swelling, also left hip pain that seemed to be resolved or significantly improved without specific treatment. From triage CT head, face, cervical spine imaging requested, also with left hip/pelvic x-ray. CT head noncontrast, no acute changes. See radiology report. CT face with left soft tissue swelling, no hematoma, no bony injuries. See radiology report CT cervical spine, no acute changes. See radiology report. X-ray left hip with pelvis, no obvious fracture changes, no dislocation. See radiology report. Copies of the report given to patient/family with discussion of results. She feels that her left hip seems to be doing quite well, does not want any further imaging in that area. Hurting her dizziness that seemed to be transient and resolved, not present now, we did discuss further workup that might include blood work and telemetry monitoring an EKG, she declines this for now. She would like to go home, home with family. Return precautions discussed. Discharge Plan Departure Patient Disposition: Home Clinical Impression: Fall from bed, Contusion of face, Left hip pain Activity Restrictions/Additional Instructions: Ms. Shankar, Recent fall from bed, with facial swelling and injury. Some left hip pain as well. History of Crohn's disease, taking Tylenol as needed for discomfort, but avoiding ibuprofen due to Crohn's disease. Today with some dizziness. At triage CT imaging was ordered of head, cervical spine, face. Along with x-ray series left hip and pelvis. These images showed soft tissue swelling to the left face, but otherwise negative images as above. Copies of the reports printed and provided, with discussion of results. We discussed additional imaging of your hip, such as CT scanning, or of the pelvis, however you seemed to move your hip quite well and he had been bearing weight and ambulating, we will hold on any hip pelvis advanced imaging for now. You did have some dizziness of unclear etiology although in context of recent face/head injury this might represent a form of postconcussive symptoms. It might be prudent to not drive or operate machinery next few days until symptoms seemed to greer not recur. No known seizure activity. We did discuss possible further evaluation such as blood testing. EKG was performed on looked unremarkable. He declined any further evaluation for this at this time. Consider follow up with your regular doctor in the next couple of days if you have any further episodes of dizziness. Return to this/nearest emergency department for any change worsening symptoms or any concerns prior. Thank you for allowing our team to evaluate you today. Prescriptions: No Action (DME) [employer] Davi 14 Day Sensor Kit See Rx Instructions .Route Qty: 6 11RF Rx Instructions: As directed cyclobenzaprine 10 mg tablet 10 mg PO BEDTIME Qty: 90 3RF gabapentin 600 mg tablet See Rx Instructions .ROUTE .COMPLEX Qty: 90 11RF Dose Instruction: TAKE 1 TABLET(600 MG) BY MOUTH THREE TIMES DAILY Rx Instructions: TAKE 1 TABLET(600 MG) BY MOUth at 1200, 3 tablets (1800 mg) at 2359 duloxetine [Cymbalta] 60 mg capsule,delayed release(DR/EC) 60 mg PO DAILY Qty: 90 3RF insulin glargine [Lantus Solostar U-100 Insulin] 100 unit/mL (3 mL) insulin pen 18 unit SUBCUT BID insulin lispro 100 unit/mL insulin pen 6 - 10 unit SUBCUT TID metformin 1,000 mg PO BID celecoxib 200 mg capsule PO DAILY (DME) Disabled Parking Permit See Rx Instructions .ROUTE .MEDSUPPLY Qty: 1 0RF Rx Instructions: I find this patient to be medically disabled and qualified for Disabled Parking as indicated on the accompanying Disabled Parking Application for Individuals. methotrexate sodium 25 mg/mL solution 25 mg IM QWEEK Patient Comments: Patient takes Sundays at bedtime Skyrizi 150 mg/mL pen injector 150 mg SUBCUT [id number] Patient Comments: [NO ORIGINAL SIG] sulfasalazine 500 mg tablet 1,000 mg PO BID ondansetron HCl 4 mg tablet 4 mg PO Q6-8H PRN (Reason: nausea and vomiting) Qty: 30 11RF hyoscyamine sulfate 0.125 mg tablet, sublingual 0.125 - 0.25 mg PO QID PRN (Reason: rectal pain) Qty: 30 5RF (DME) FreeStyle Davi 2 Medina Misc See Rx Instructions .Route Qty: 1 11RF Rx Instructions: As directed rosuvastatin 10 mg tablet 10 mg PO BEDTIME Qty: 100 3RF losartan 25 mg tablet 25 mg PO DAILY Qty: 90 3RF solifenacin [Vesicare] 10 mg tablet 10 mg PO DAILY Qty: 90 3RF folic acid 1 mg tablet 1 mg PO DAILY magnesium oxide 500 mg tablet 500 mg PO BID valacyclovir 500 mg tablet 500 mg PO BID famotidine [Pepcid] 20 mg tablet 20 mg PO BID Referrals: Jon Simeon DO [Primary Care Provider] - Stand Alone Forms: Patient Portal/API/Survey
[2024-04-24 22:24] VITALS: BP 125/57; PULSE 73; RESP 16; O2SAT 95
== END 2024-04-24 22:32 | disposition home or self-care (01) ==
PROVIDERS: Emergency Provider Emergency Medicine; PCP Family Medicine
DX: S00.83XA Contusion of other part of head, initial encounter (principal); R42 Dizziness and giddiness; R07.9 Chest pain, unspecified; M25.552 Pain in left hip; W06.XXXA Fall from bed, initial encounter
CPT/HCPCS: 70450; 70486; 72125; 73502; 93005; 93010; 99281; 99284